=== PATIENT | male | born 1965 | race Caucasian/White ===

== ENCOUNTER 2017-05-21 22:30 | Emergency (ER) | payer MEDICARE, MEDICAID ==
[2017-05-21] MEDS ORDERED: Tetracaine HCl/PF 0.5% 4 ML Bottle ONE (22:41)
[2017-05-21] MEDS ORDERED: Tetracaine HCl/PF 0.5% 4 ML Bottle EYEBOTH ONE ×2 (22:41→23:16)
[2017-05-21] MEDS ORDERED: Diphtheria,Pertussis(Acell),Tetanus Vaccine 0.5 ML SDV IM ONE (23:42)
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
[2017-05-21 23:56] VITALS: BP 137/81
== END 2017-05-22 00:18 | disposition home or self-care (01) ==
LOC: JP.ED 22:30
DX: T20.10XA Burn of first degree of head, face, and neck, unspecified site, initial encounter (principal); T20.17XA Burn of first degree of neck, initial encounter; T22.10XA Burn of first degree of shoulder and upper limb, except wrist and hand, unspecified site, initial encounter; E78.00 Pure hypercholesterolemia, unspecified; F17.210 Nicotine dependence, cigarettes, uncomplicated; Z23 Encounter for immunization; Z88.5 Allergy status to narcotic agent; Z88.8 Allergy status to other drugs, medicaments and biological substances; Z79.82 Long term (current) use of aspirin; Z79.899 Other long term (current) drug therapy; Z95.1 Presence of aortocoronary bypass graft; Z98.890 Other specified postprocedural states; X12.XXXA Contact with other hot fluids, initial encounter
CPT/HCPCS: 90471; 90715; 99283; A9270; 99284

== ENCOUNTER 2019-04-27 13:54 | Emergency (ER) | payer MEDICARE, MEDICAID ==
[2019-04-27] MEDS ORDERED: Lactated Ringers 1,000 ML IV SCH (14:00)
--- NOTE | 2019-04-27 14:01 | EDM.PDOC ---
ED HPI GENERAL MEDICAL PROBLEM - General Stated Complaint: VIA NORTH Time Seen by Provider: 04/27/19 13:56 Source of Information: Reports: Patient, RN Notes Reviewed History Limitations: Reports: Altered Mental Status - History of Present Illness INITIAL COMMENTS - FREE TEXT/NARRATIVE: 13-year-old gentleman presents emergency department today via EMS services for altered mental status. Per report from EMS and family members he was behaving fine yesterday was found on the couch today responding inappropriately EMS services were called he was able to transferred to the [facility] does respond to questions however very limited in scope and only responds to stimuli denies pain or difficulty breathing denies any medication or drug use or alcohol use - Related Data Allergies Allergy/AdvReac Type Severity Reaction Status Date / Time cortisone [Cortisone] AdvReac Confusion Verified 05/21/17 22:43 morphine AdvReac Hallucinati Verified 05/21/17 22:43 ons Home Meds: Home Meds Aspirin [Emi Chewable] 81 mg PO DAILY 05/20/14 [History] Simvastatin 40 mg PO BEDTIME 05/20/14 [History] Lisinopril 1 tab PO DAILY 09/09/16 [History] Metoprolol Succinate [Toprol XL] 1 tab PO DAILY 09/09/16 [History] Omeprazole 1 tab PO DAILY 09/09/16 [History] Gabapentin [Neurontin] 300 mg PO BEDTIME 04/27/19 [History] oxyCODONE 5 mg PO Q6HR PRN 04/27/19 [History] Past Medical History Cardiovascular History: Reports: High Cholesterol Musculoskeletal History: Reports: Back Pain, Chronic, Fracture Neurological History: Reports: Brain Injury - Infectious Disease History Infectious Disease History: Reports: Chicken Pox, Measles, Mumps - Past Surgical History HEENT Surgical History: Reports: Tonsillectomy Cardiovascular Surgical History: Reports: Coronary Artery Bypass GI Surgical History: Reports: Other (See Below) Other GI Surgeries/Procedures: spleenectomy Social & Family History - Caffeine Use Caffeine Use: Reports: Coffee, Soda - Living Situation & Occupation Living situation: Reports: Single Occupation: Disabled ED ROS GENERAL - Review of Systems Review Of Systems: Unable To Obtain ED EXAM, NEURO - Physical Exam Exam: See Below Text/Narrative:: General: Male lethargic but arousable to voice GCS 14, alert and oriented x3 HEENT: head is atraumatic normocephalic, eyes pupils equal round reactive to light, sclera clear no conjunctivitis appreciated. Ears tympanic membranes clear and trejo landmarks and light reflex are present bilaterally canals are clear. Nose no septal deviation, nares are clear, no blood present. Mouth mucosa is moist and pink no erythema or exudate noted in soft palate, tongue is midline uvula is midline, dentition is intact. Neck: Supple no thyromegaly no tracheal deviation. Nodes: Cervical nodes subclavicular nodes nontender no palpable lymphadenopathy noted. Lungs: clear to auscultation bilaterally with symmetrical respirations, no adventitious noise appreciated. CV: Regular rate and rhythm S1 and S2 appreciated no murmurs rubs or gallops noted. Abdomen: Soft, nontender, no palpable masses or organomegaly appreciated, no distention no guarding bowel sounds are present, Neuro: Arousable to voice and does follow commands Skin: Warm and dry, intact Extremities: No lower extremity edema appreciated, pedal pulse is +2. Course - Vital Signs Last Recorded V/S: Last Vital Signs Temp 97.4 F 04/27/19 14:13 Pulse 76 04/27/19 14:57 Resp 25 H 04/27/19 14:57 BP 122/83 04/27/19 14:57 Pulse Ox 95 04/27/19 14:57 - Orders/Labs/Meds Orders: Active Orders 24 hr Category Date Time Status EKG Documentation Completion [RC] ASDIRECTED Care 04/27/19 13:58 Active Lactated Ringers [Ringers, Lactated] 1,000 ml Med 04/27/19 14:00 Active IV ASDIRECTED EKG 12 Lead [EK] Urgent Ther 04/27/19 13:57 Ordered Medication Orders Lactated Ringer's (Ringers, Lactated) 1,000 mls @ 125 mls/hr IV ASDIRECTED JOSE Last Admin: 04/27/19 14:27 Dose: 125 mls/hr Labs: Laboratory Tests 04/27/19 04/27/19 04/27/19 Range/Units 14:09 14:09 14:14 WBC (4.5-11.0) K/uL RBC (4.30-5.90) M/uL Hgb (12.0-15.0) g/dL Hct (40.0-54.0) % MCV (80-98) fL MCH (27-31) pg MCHC (32-36) % Plt Count (150-400) K/uL Neut % (Auto) (36-66) % Lymph % (Auto) (24-44) % Crosby % (Auto) (2-6) % Eos % (Auto) (2-4) % Baso % (Auto) (0-1) % Sodium (140-148) mmol/L Potassium (3.6-5.2) mmol/L Chloride (100-108) mmol/L Carbon Dioxide (21-32) mmol/L Anion Gap (5.0-14.0) mmol/L BUN (7-18) mg/dL Creatinine (0.8-1.3) mg/dL Est Cr Clr Drug Dosing mL/min Estimated GFR (MDRD) (>60) Glucose (74-106) mg/dL Lactic Acid (0.4-2.0) mmol/L Calcium (8.5-10.1) mg/dL Total Bilirubin (0.2-1.0) mg/dL AST (15-37) U/L ALT (12-78) U/L Alkaline Phosphatase (46-116) U/L Ammonia (11-32) mmol/L Creatine Kinase 127 (39-308) U/L Troponin I (0.000-0.056) ng/mL Total Protein (6.4-8.2) g/dL Albumin (3.4-5.0) g/dL Globulin (2.3-3.5) g/dL Albumin/Globulin Ratio (1.2-2.2) TSH, Ultra Sensitive (0.358-3.740) uIU/mL Urine Color [place] Urine Appearance Cloudy Urine pH 6.0 (4.5-8.0) Ur Specific [place] 1.015 (1.008-1.030) Urine Protein Trace (NEGATIVE) mg/dL Urine Glucose (UA) Normal (NEGATIVE) mg/dL Urine Ketones Negative (NEGATIVE) mg/dL Urine Occult Blood Large (NEGATIVE) Urine Nitrite Negative (NEGAITVE) Urine Bilirubin Negative (NEGATIVE) Urine Urobilinogen Normal (NORMAL) mg/dL Ur Leukocyte Esterase Negative (NEGATIVE) Urine RBC 10-20 H (0-5) Urine WBC 5-10 H (0-5) Ur Epithelial Cells Few Amorphous Sediment Few Urine Bacteria Few Urine Mucus Few Salicylates (2.0-20.0) mg/dL Urine Opiates Screen Negative (NEGATIVE) Ur Oxycodone Screen Presumptive positive H (NEGATIVE) Urine Methadone Screen Negative (NEGATIVE) Ur Propoxyphene Screen Negative (NEGATIVE) Acetaminophen (10.0-30.0) ug/mL Ur Barbiturates Screen Negative (NEGATIVE) Ur Tricyclics Screen Negative (NEGATIVE) Ur Phencyclidine Scrn Negative (NEGATIVE) Ur Amphetamine Screen Negative (NEGATIVE) U Methamphetamines Scrn Negative (NEGATIVE) Urine MDMA Screen Negative (NEGATIVE) U Benzodiazepines Scrn Negative (NEGATIVE) U Cocaine Metab Screen Negative (NEGATIVE) U Marijuana (THC) Screen Negative (NEGATIVE) Ethyl Alcohol mg/dL 04/27/19 04/27/19 04/27/19 Range/Units 14:14 14:14 14:14 WBC 9.2 (4.5-11.0) K/uL RBC 4.84 (4.30-5.90) M/uL Hgb 15.5 H (12.0-15.0) g/dL Hct 46.2 (40.0-54.0) % MCV 96 (80-98) fL MCH 32 H (27-31) pg MCHC 34 (32-36) % Plt Count 231 (150-400) K/uL Neut % (Auto) 64 (36-66) % Lymph % (Auto) 24 (24-44) % Crosby % (Auto) 12 H (2-6) % Eos % (Auto) 0 L (2-4) % Baso % (Auto) 1 (0-1) % Sodium 134 L (140-148) mmol/L Potassium 4.2 (3.6-5.2) mmol/L Chloride 98 L (100-108) mmol/L Carbon Dioxide 30 (21-32) mmol/L Anion Gap 10.2 (5.0-14.0) mmol/L BUN 18 (7-18) mg/dL Creatinine 1.1 (0.8-1.3) mg/dL Est Cr Clr Drug Dosing 82.30 mL/min Estimated GFR (MDRD) > 60 (>60) Glucose 115 H (74-106) mg/dL Lactic Acid (0.4-2.0) mmol/L Calcium 9.0 (8.5-10.1) mg/dL Total Bilirubin 0.3 (0.2-1.0) mg/dL AST 44 H (15-37) U/L ALT 48 (12-78) U/L Alkaline Phosphatase 113 (46-116) U/L Ammonia 17 (11-32) mmol/L Creatine Kinase (39-308) U/L Troponin I < 0.017 (0.000-0.056) ng/mL Total Protein 7.3 (6.4-8.2) g/dL Albumin 3.1 L (3.4-5.0) g/dL Globulin 4.2 H (2.3-3.5) g/dL Albumin/Globulin Ratio 0.7 L (1.2-2.2) TSH, Ultra Sensitive 0.934 (0.358-3.740) uIU/mL Urine Color Urine Appearance Urine pH (4.5-8.0) Ur Specific [place] (1.008-1.030) Urine Protein (NEGATIVE) mg/dL Urine Glucose (UA) (NEGATIVE) mg/dL Urine Ketones (NEGATIVE) mg/dL Urine Occult Blood (NEGATIVE) Urine Nitrite (NEGAITVE) Urine Bilirubin (NEGATIVE) Urine Urobilinogen (NORMAL) mg/dL Ur Leukocyte Esterase (NEGATIVE) Urine RBC (0-5) Urine WBC (0-5) Ur Epithelial Cells Amorphous Sediment Urine Bacteria Urine Mucus Salicylates (2.0-20.0) mg/dL Urine Opiates Screen (NEGATIVE) Ur Oxycodone Screen (NEGATIVE) Urine Methadone Screen (NEGATIVE) Ur Propoxyphene Screen (NEGATIVE) Acetaminophen < 2.0 L (10.0-30.0) ug/mL Ur Barbiturates Screen (NEGATIVE) Ur Tricyclics Screen (NEGATIVE) Ur Phencyclidine Scrn (NEGATIVE) Ur Amphetamine Screen (NEGATIVE) U Methamphetamines Scrn (NEGATIVE) Urine MDMA Screen (NEGATIVE) U Benzodiazepines Scrn (NEGATIVE) U Cocaine Metab Screen (NEGATIVE) U Marijuana (THC) Screen (NEGATIVE) Ethyl Alcohol mg/dL 04/27/19 04/27/19 04/27/19 Range/Units 14:14 14:14 14:14 WBC (4.5-11.0) K/uL RBC (4.30-5.90) M/uL Hgb (12.0-15.0) g/dL Hct (40.0-54.0) % MCV (80-98) fL MCH (27-31) pg MCHC (32-36) % Plt Count (150-400) K/uL Neut % (Auto) (36-66) % Lymph % (Auto) (24-44) % Crosby % (Auto) (2-6) % Eos % (Auto) (2-4) % Baso % (Auto) (0-1) % Sodium (140-148) mmol/L Potassium (3.6-5.2) mmol/L Chloride (100-108) mmol/L Carbon Dioxide (21-32) mmol/L Anion Gap (5.0-14.0) mmol/L BUN (7-18) mg/dL Creatinine (0.8-1.3) mg/dL Est Cr Clr Drug Dosing mL/min Estimated GFR (MDRD) (>60) Glucose (74-106) mg/dL Lactic Acid 0.9 (0.4-2.0) mmol/L Calcium (8.5-10.1) mg/dL Total Bilirubin (0.2-1.0) mg/dL AST (15-37) U/L ALT (12-78) U/L Alkaline Phosphatase (46-116) U/L Ammonia (11-32) mmol/L Creatine Kinase (39-308) U/L Troponin I (0.000-0.056) ng/mL Total Protein (6.4-8.2) g/dL Albumin (3.4-5.0) g/dL Globulin (2.3-3.5) g/dL Albumin/Globulin Ratio (1.2-2.2) TSH, Ultra Sensitive (0.358-3.740) uIU/mL Urine Color Urine Appearance Urine pH (4.5-8.0) Ur Specific [place] (1.008-1.030) Urine Protein (NEGATIVE) mg/dL Urine Glucose (UA) (NEGATIVE) mg/dL Urine Ketones (NEGATIVE) mg/dL Urine Occult Blood (NEGATIVE) Urine Nitrite (NEGAITVE) Urine Bilirubin (NEGATIVE) Urine Urobilinogen (NORMAL) mg/dL Ur Leukocyte Esterase (NEGATIVE) Urine RBC (0-5) Urine WBC (0-5) Ur Epithelial Cells Amorphous Sediment Urine Bacteria Urine Mucus Salicylates 0.6 L (2.0-20.0) mg/dL Urine Opiates Screen (NEGATIVE) Ur Oxycodone Screen (NEGATIVE) Urine Methadone Screen (NEGATIVE) Ur Propoxyphene Screen (NEGATIVE) Acetaminophen (10.0-30.0) ug/mL Ur Barbiturates Screen (NEGATIVE) Ur Tricyclics Screen (NEGATIVE) Ur Phencyclidine Scrn (NEGATIVE) Ur Amphetamine Screen (NEGATIVE) U Methamphetamines Scrn (NEGATIVE) Urine MDMA Screen (NEGATIVE) U Benzodiazepines Scrn (NEGATIVE) U Cocaine Metab Screen (NEGATIVE) U Marijuana (THC) Screen (NEGATIVE) Ethyl Alcohol < 3 mg/dL Meds: Medications Generic Name Dose Route Start Last Admin Trade Name Freq PRN Reason Stop Dose Admin Lactated Ringer's 1,000 mls @ 125 mls/hr 04/27/19 14:00 04/27/19 14:27 Ringers, Lactated IV 125 mls/hr ASDIRECTED JOSE Administration Departure - Departure Time of Disposition: 15:23 Disposition: Home, Self-Care 01 Condition: Fair Clinical Impression: Altered mental status Qualifiers: Altered mental status type: somnolence Qualified Code(s): R40.0 - Somnolence - Discharge Information Referrals: PCP,None [Primary Care Provider] - Additional Instructions: Resume regular medications, keep your follow-up appointment with your primary care provider this week, call or return to the emergency department worsening of symptoms - My Orders Last 24 Hours: My Active Orders 04/27/19 13:57 EKG 12 Lead [EK] Urgent 04/27/19 13:58 EKG Documentation Completion [RC] ASDIRECTED 04/27/19 14:00 Lactated Ringers [Ringers, Lactated] 1,000 ml IV ASDIRECTED - Assessment/Plan Last 24 Hours: My Active Orders 04/27/19 13:57 EKG 12 Lead [EK] Urgent 04/27/19 13:58 EKG Documentation Completion [RC] ASDIRECTED 04/27/19 14:00 Lactated Ringers [Ringers, Lactated] 1,000 ml IV ASDIRECTED Plan: Assessment Acuity = acute Site and laterality = altered mental status GCS 14 Etiology = unclear etiology Manifestations = none Location of injury = Home Lab values = CBC, CMP, ammonia, troponin, urinalysis, chest x-ray, CT scan of the head showed no acute process salicylic acid, acetaminophen and alcohol also negative urine drug screen positive for opiates only Plan After liter fluids he is responding appropriately he is not sure of what happened denies any alcohol no recreational drugs , discharge home follow-up primary care this week appointment on This note was dictated using [employer] voice recognition software please call with any questions on syntax or grammar.
[2019-04-27 14:13] VITALS: BP 122/83
[2019-04-27 14:49] LABS: ACETAMINOPHEN < 2.0 ug/mL (10.0-30.0)
[2019-04-27 14:58] VITALS: PULSE 76
--- NOTE | 2019-04-27 15:01 | CRLCR ---
INDICATION: hypoxia INDICATION: Hip axial. TECHNIQUE: Chest 1 view. COMPARISON: None FINDINGS: Cardiovascular and mediastinum: Heart size and vasculature are normal in caliber and appearance. Mediastinum is within normal limits. Lungs and pleural space: Lungs are clear. No sign of infiltrate or mass. No sign of pleural effusion. No pneumothorax. Bones and soft tissues: Median sternotomy changes. IMPRESSION: There is no acute airspace disease. Dictated by Chauncey Zeng MD @ 04/27/2019 3:00:03 PM Dictated by: Chauncey Zeng MD @ 04/27/2019 15:00:13 (Electronically Signed)
--- NOTE | 2019-04-27 15:05 | CRLCT ---
INDICATION: 54-year-old male. Altered mental status. TECHNIQUE: CT images foramen magnum to vertex were obtained without contrast. FINDINGS: The ventricles and normal in size and shape. No evidence of acute hemorrhage no subdural fluid collections no mass effect. Preservation of trejo-white interface without evidence of acute focal infarction. Tiny chronic lacunar infarction left basal ganglia. No posterior fossa hemorrhage or mass effect. Bony calvarium is unremarkable. IMPRESSION: No evidence of acute hemorrhage mass effect or cortical based infarction. Please note that all CT scans at this facility use dose modulation, iterative reconstruction, and/or weight-based dosing when appropriate to reduce radiation dose to as low as reasonably achievable. Dictated by Madan Jones MD @ Apr 27 2019 3:03PM Signed by Dr. Madan Jones @ Apr 27 2019 3:04PM
== END 2019-04-27 15:52 | disposition home or self-care (01) ==
LOC: JP.ED 13:54
DX: R40.0 Somnolence (principal); E78.00 Pure hypercholesterolemia, unspecified; Z88.8 Allergy status to other drugs, medicaments and biological substances; Z79.82 Long term (current) use of aspirin; Z79.899 Other long term (current) drug therapy
CPT/HCPCS: 36415; 70450; 71045; 80053; 80305; 81001; 82140; 82550; 83605; 84443; 84484; 85025; 93005; 93010; 96360; 99285; G0480; J7120; 99284

== ENCOUNTER 2019-05-04 12:08 | Emergency (ER) | payer MEDICARE, MEDICAID ==
[~2019-05-04 12:08] MED LIST: methylPREDNISolone Sodium Succinate 125 MG/2 ML SDV IVPUSH ONE
[2019-05-04] MEDS ORDERED: Famotidine 20 MG Tab PO ONE (12:09)
--- NOTE | 2019-05-04 12:21 | EDM.PDOC ---
ED HPI GENERAL MEDICAL PROBLEM - General Chief Complaint: Allergic Reaction Stated Complaint: MEDICAL VIA NORTH Time Seen by Provider: 05/04/19 12:10 Source of Information: Reports: Patient, EMS, Old Records History Limitations: Reports: No Limitations - History of Present Illness INITIAL COMMENTS - FREE TEXT/NARRATIVE: 54 yo male was seen in the clinic yesterday for a rash that started on Friday. He was prescribed doxycycline and today his rash was worse and he was having trouble breathing so EMS was contacted and transported here after Epi and IV diphenhydramine 50 mg. Is improving upon arrival. Stridor noted in addition to a rash with some tachycardia by EMS. He has had Percocet in the past, this was recently restarted as well. No hx of allergy to this med. Has a f/u appt with his doctor in 2 days. Onset: Gradual Onset Date: 05/02/19 Duration: Day(s): (2), Getting Worse Location: Reports: Generalized Quality: Reports: Other (itchy) Severity: Severe Improves with: Reports: Medication Worsens with: Reports: Other (? doxycycline) Context: Reports: Other (See HPI) Associated Symptoms: Reports: Rash, Shortness of Breath. 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) (see HPI) - Related Data Allergies Allergy/AdvReac Type Severity Reaction Status Date / Time cortisone [Cortisone] AdvReac Confusion Verified 05/21/17 22:43 morphine AdvReac Hallucinati Verified 05/21/17 22:43 ons Home Meds: Home Meds Aspirin [Emi Chewable] 325 mg PO DAILY 05/20/14 [History] Simvastatin 40 mg PO BEDTIME 05/20/14 [History] Metoprolol Succinate [Toprol XL] 25 mg PO DAILY 09/09/16 [History] Omeprazole 40 mg PO DAILY 09/09/16 [History] Gabapentin [Neurontin] 300 mg PO BEDTIME 04/27/19 [History] oxyCODONE 5 mg PO Q6HR PRN 04/27/19 [History] Doxycycline [Doxycycline Hyclate] 100 mg PO BID 05/04/19 [History] Naproxen 500 mg PO BID 05/04/19 [History] Past Medical History Cardiovascular History: Reports: High Cholesterol Musculoskeletal History: Reports: Back Pain, Chronic, Fracture Neurological History: Reports: Brain Injury - Infectious Disease History Infectious Disease History: Reports: Chicken Pox, Measles, Mumps - Past Surgical History HEENT Surgical History: Reports: Tonsillectomy Cardiovascular Surgical History: Reports: Coronary Artery Bypass GI Surgical History: Reports: Other (See Below) Other GI Surgeries/Procedures: spleenectomy Social & Family History - Caffeine Use Caffeine Use: Reports: Coffee, Soda - Living Situation & Occupation Living situation: Reports: Single Occupation: Disabled ED ROS GENERAL - Review of Systems Review Of Systems: See Below Constitutional: Reports: Malaise HEENT: Reports: Throat Swelling Respiratory: Reports: Shortness of Breath Cardiovascular: Reports: No Symptoms Endocrine: Reports: No Symptoms GI/Abdominal: Reports: No Symptoms : Reports: No Symptoms Musculoskeletal: Reports: No Symptoms Skin: Reports: Pruritis, Rash, Erythema Neurological: Reports: No Symptoms Psychiatric: Reports: No Symptoms ED EXAM, SKIN/RASH Exam: See Below Exam Limited By: No Limitations General Appearance: Alert, WD/WN, Mild Distress, Obese Eye Exam: Bilateral Eye: Normal Inspection Ears: Hearing Grossly Normal Nose: Normal Inspection, No Blood Throat/Mouth: Normal Inspection, Other (some stridor, improved per EMS). No: No Airway Compromise Head: Atraumatic, Normocephalic Neck: Normal Inspection Respiratory/Chest: No Respiratory Distress, No Accessory Muscle Use, Decreased Breath Sounds. No: Wheezing Cardiovascular: Regular Rate, Rhythm, Tachycardia GI/Abdominal: Normal Bowel Sounds, Soft, Non-Tender, No Distention Back Exam: Normal Inspection Extremities: Normal Inspection, Normal Range of Motion, Non-Tender, No Pedal Edema Neurological: Alert, Oriented, CN II-XII Intact, Normal Cognition, No Motor/ Sensory Deficits Psychiatric: Normal Affect, Normal Mood Skin: Warm, Dry, Intact, Erythema, Rash Location, Skin: Generalized Characteristics: Urticarial Associated features: Induration. No: Warmth, Tenderness, Lymphangitis Course - Vital Signs Last Recorded V/S: Last Vital Signs Temp 37.8 C 05/04/19 12:11 Pulse 115 H 05/04/19 13:10 Resp 37 H 05/04/19 13:10 BP 117/76 05/04/19 13:10 Pulse Ox 96 05/04/19 13:10 - Orders/Labs/Meds Orders: Active Orders 24 hr Category Date Time Status Sodium Chloride 0.9% [Normal Saline] 1,000 ml Med 05/04/19 12:45 Active IV ASDIRECTED Medication Orders Sodium Chloride (Normal Saline) 1,000 mls @ 500 mls/hr IV ASDIRECTED JOSE Last Admin: 05/04/19 12:42 Dose: 500 mls/hr Meds: Medications Generic Name Dose Route Start Last Admin Trade Name Freq PRN Reason Stop Dose Admin Sodium Chloride 1,000 mls @ 500 mls/hr 05/04/19 12:45 05/04/19 12:42 Normal Saline IV 500 mls/hr ASDIRECTED JOSE Administration Discontinued Medications Generic Name Dose Route Start Last Admin Trade Name Freq PRN Reason Stop Dose Admin Diphenhydramine HCl 50 mg 05/04/19 12:30 05/04/19 12:42 Benadryl IVPUSH 05/04/19 12:31 50 mg ONETIME ONE Administration Famotidine 40 mg 05/04/19 12:09 05/04/19 12:28 Pepcid PO 05/04/19 12:10 40 mg ONETIME ONE Administration Methylprednisolone Sodium Succinate 125 mg 05/04/19 12:08 05/04/19 12:29 Solu-Medrol IVPUSH 05/04/19 12:09 125 mg ONETIME ONE Administration Departure - Departure Time of Disposition: 14:10 Disposition: Home, Self-Care 01 Condition: Fair Clinical Impression: Allergic reaction caused by a drug Qualifiers: Encounter type: initial encounter Qualified Code(s): T78.40XA - Allergy, unspecified, initial encounter - Discharge Information *PRESCRIPTION DRUG MONITORING PROGRAM REVIEWED*: No *COPY OF PRESCRIPTION DRUG MONITORING REPORT IN PATIENT ELIEL: No Instructions: Anaphylactic Reaction, Adult Referrals: PCP,None [Primary Care Provider] - Forms: ED Department Discharge Additional Instructions: Take diphenhydramine 75 mg every 6 hrs for 24 hrs. Do not take doxycycline or oxycodone again until you discuss with your doctor at your appt. Return as needed. - My Orders Last 24 Hours: My Active Orders 05/04/19 12:45 Sodium Chloride 0.9% [Normal Saline] 1,000 ml IV ASDIRECTED - Assessment/Plan Last 24 Hours: My Active Orders 05/04/19 12:45 Sodium Chloride 0.9% [Normal Saline] 1,000 ml IV ASDIRECTED
[2019-05-04] MEDS ORDERED: diphenhydrAMINE 50 MG/ML SDV IVPUSH ONE (12:30)
[2019-05-04] MEDS ORDERED: Sodium Chloride 0.9% 1,000 ML IV SCH (12:45)
[2019-05-04 14:07] VITALS: BP 137/81; PULSE 110
== END 2019-05-04 14:15 | disposition home or self-care (01) ==
LOC: JP.ED 12:08
DX: L50.0 Allergic urticaria (principal); E78.00 Pure hypercholesterolemia, unspecified; Z88.6 Allergy status to analgesic agent; Z88.8 Allergy status to other drugs, medicaments and biological substances; Z79.82 Long term (current) use of aspirin; Z79.899 Other long term (current) drug therapy
CPT/HCPCS: 96361; 96374; 96375; 99282; A9270; J1200; J2930; J7030; 99283

== ENCOUNTER 2020-06-23 11:19 | Emergency (ER) | payer MEDICAID, MEDICARE ==
[2020-06-23 11:34] VITALS: BP 136/89; PULSE 86
--- NOTE | 2020-06-23 12:08 | EDM.PDOC ---
ED HPI GENERAL MEDICAL PROBLEM - General Chief Complaint: General Stated Complaint: BREATHING ISSUES Time Seen by Provider: 06/23/20 11:45 Source of Information: Reports: Patient, EMS, Family History Limitations: Reports: No Limitations - History of Present Illness INITIAL COMMENTS - FREE TEXT/NARRATIVE: 55-year-old male with significant traumatic brain injury at age 16, cared for by his mother overnight last night he had increased shortness of breath, palpitations, and his mother called the ambulance morning. He was stable in route. Onset: Unknown/Unsure Duration: Week(s): (Symptoms have been worsening for the last 1 to 2 weeks) Associated Symptoms: Reports: Confusion (Intermittent confusion which is chronic), Shortness of Breath. Denies: Loss of Appetite, Nausea/Vomiting - Related Data Allergies Allergy/AdvReac Type Severity Reaction Status Date / Time doxycycline Allergy Airway Verified 05/05/19 09:32 Tightness cortisone [Cortisone] AdvReac Confusion Verified 05/21/17 22:43 morphine AdvReac Hallucinati Verified 05/21/17 22:43 ons oxycodone AdvReac Hives Verified 06/23/20 11:41 Home Meds: Home Meds Aspirin [Emi Chewable] 325 mg PO DAILY 05/20/14 [History] Metoprolol Succinate [Toprol XL] 25 mg PO DAILY 09/09/16 [History] Omeprazole 40 mg PO DAILY 09/09/16 [History] Gabapentin [Neurontin] 800 mg PO TID 04/27/19 [History] Naproxen 500 mg PO BID 05/04/19 [History] Acetaminophen 1,000 mg PO TID 06/23/20 [History] DULoxetine [Cymbalta] 60 mg PO DAILY 06/23/20 [History] atorvaSTATin [Lipitor] 40 mg PO DAILY 06/23/20 [History] lisinopriL [Lisinopril] 5 mg PO DAILY 06/23/20 [History] Past Medical History HEENT History: Reports: Hard of Hearing, Impaired Vision Cardiovascular History: Reports: High Cholesterol, Hypertension Respiratory History: Reports: Sleep Apnea Other Respiratory History: cpap does not use Musculoskeletal History: Reports: Back Pain, Chronic, Fracture, Other (See Below) Neurological History: Reports: Brain Injury - Infectious Disease History Infectious Disease History: Reports: Chicken Pox, Measles, Mumps - Past Surgical History Head Surgeries/Procedures: Reports: None HEENT Surgical History: Reports: Tonsillectomy Cardiovascular Surgical History: Reports: Coronary Artery Bypass Respiratory Surgical History: Reports: None GI Surgical History: Reports: Other (See Below) Other GI Surgeries/Procedures: spleenectomy Neurological Surgical History: Reports: Spinal Fusion Musculoskeletal Surgical History: Reports: None Social & Family History - Tobacco Use Smoking Status *Q: Current Every Day Smoker Years of Tobacco use: 40 Packs/Tins Daily: 1 Used Tobacco, but Quit: No Second Hand Smoke Exposure: No - Caffeine Use Caffeine Use: Reports: Coffee - Recreational Drug Use Recreational Drug Use: No - Living Situation & Occupation Living situation: Reports: Single Occupation: Disabled ED ROS GENERAL - Review of Systems Review Of Systems: See Below Constitutional: Reports: Malaise. Denies: Fever, Chills HEENT: Denies: Vision Change Respiratory: Reports: Shortness of Breath. Denies: Wheezing, Cough, Sputum Cardiovascular: Denies: Chest Pain GI/Abdominal: Denies: Abdominal Pain, Nausea, Vomiting : Reports: No Symptoms Musculoskeletal: Reports: Other (Chronic leg radiculopathy on the right side causing pain) Skin: Reports: Diaphoresis (Intermittent periods of diaphoresis) Neurological: Denies: Headache ED EXAM, GENERAL - Physical Exam Exam: See Below Exam Limited By: No Limitations General Appearance: Alert, No Apparent Distress Eye Exam: Bilateral Eye: EOMI Head: Atraumatic Neck: Supple, Non-Tender Respiratory/Chest: Chest Non-Tender, Crackles (A few basilar crackles are heard bilaterally, otherwise diffuse decreased breath sounds) Cardiovascular: Regular Rate, Rhythm, No Murmur GI/Abdominal: Soft, Non-Tender Extremities: Other (Some pain with passive movement of the left leg, no significant peripheral edema) Neurological: Alert, Oriented Course - Vital Signs Last Recorded V/S: Last Vital Signs Temp 98.3 F 06/23/20 11:38 Pulse 86 06/23/20 11:38 Resp 20 06/23/20 11:38 BP 136/89 06/23/20 11:38 Pulse Ox 92 L 06/23/20 11:38 - Orders/Labs/Meds Labs: Laboratory Tests 06/23/20 06/23/20 Range/Units 11:37 11:37 WBC 12.6 H (4.5-11.0) K/uL RBC 4.38 (4.30-5.90) M/uL Hgb 14.7 (12.0-15.0) g/dL Hct 42.9 (40.0-54.0) % MCV 98 (80-98) fL MCH 34 H (27-31) pg MCHC 34 (32-36) % Plt Count 283 (150-400) K/uL Neut % (Auto) 65 (36-66) % Lymph % (Auto) 24 (24-44) % Mchenry % (Auto) 8 H (2-6) % Eos % (Auto) 2 (2-4) % Baso % (Auto) 1 (0-1) % Sodium 143 (140-148) mmol/L Potassium 4.6 (3.6-5.2) mmol/L Chloride 107 (100-108) mmol/L Carbon Dioxide 29 (21-32) mmol/L Anion Gap 6.7 (5.0-14.0) mmol/L BUN 14 (7-18) mg/dL Creatinine 1.0 (0.8-1.3) mg/dL Est Cr Clr Drug Dosing 89.46 mL/min Estimated GFR (MDRD) > 60 (>60) Glucose 115 H (74-106) mg/dL Calcium 8.8 (8.5-10.1) mg/dL Total Bilirubin 0.8 D (0.2-1.0) mg/dL AST 14 L (15-37) U/L ALT 13 (12-78) U/L Alkaline Phosphatase 79 (46-116) U/L Troponin I < 0.017 (0.000-0.056) ng/mL Total Protein 6.8 (6.4-8.2) g/dL Albumin 3.6 (3.4-5.0) g/dL Globulin 3.2 (2.3-3.5) g/dL Albumin/Globulin Ratio 1.1 L (1.2-2.2) - Re-Assessments/Exams Free Text/Narrative Re-Assessment/Exam: 06/23/20 15:30 2 view chest x-ray shows mild congestive heart failure with small bilateral pleural effusions and increased vascularization. CBC is normal, kidney function is good, electrolytes are within normal limits and troponin is 0. Patient was started on 20 mg of Lasix daily and given 30-day supply, and recommended to follow-up with his primary provider in the next 7 to 10 days. Return sooner if worsening despite treatment Departure - Departure Time of Disposition: 12:38 Disposition: Home, Self-Care 01 Clinical Impression: Nocturnal dyspnea, Palpitations - Discharge Information Instructions: Shortness of Breath, Adult, [id number] Referrals: PCP,None [Primary Care Provider] - Forms: ED Department Discharge Care Plan Goals: Continue your current medications, adding the 1 dose furosemide each morning as directed. Recheck with your regular doctor in 1 to 2 weeks, or return sooner if not improving satisfactorily Sepsis Event Note (ED) - Evaluation Sepsis Screening Result: No Definite Risk - Focused Exam Vital Signs: Vital Signs Temp Pulse Resp BP Pulse Ox 06/23/20 11:38 98.3 F 86 20 136/89 92 L 06/23/20 11:33 98.3 F 86 20 136/89 92 L
--- NOTE | 2020-06-23 13:24 | CR ---
CHEST: 2 view CLINICAL HISTORY:Dyspnea COMPARISON:2019 FINDINGS: Heart is enlarged. Pulmonary vascularity is cephalized. There is some generalized interstitial prominence. There are minimal effusions bilaterally. Patient has had previous sternotomy. There is an old healed left clavicular fracture. Impression: CHF. Small bilateral pleural effusions Previous sternotomy
== END 2020-06-23 12:38 | disposition home or self-care (01) ==
LOC: JP.ED 11:19
DX: I11.0 Hypertensive heart disease with heart failure (principal); I50.9 Heart failure, unspecified; J90 Pleural effusion, not elsewhere classified; E78.00 Pure hypercholesterolemia, unspecified; F17.210 Nicotine dependence, cigarettes, uncomplicated; Z88.1 Allergy status to other antibiotic agents; Z88.5 Allergy status to narcotic agent; Z88.8 Allergy status to other drugs, medicaments and biological substances; Z79.899 Other long term (current) drug therapy; Z79.82 Long term (current) use of aspirin
CPT/HCPCS: 36415; 71046; 71046-26; 80053; 84484; 85025; 99285-25

== ENCOUNTER 2020-07-10 02:47 | Inpatient (IN) | payer MEDICAID, MEDICARE ==
[2020-07-10] MEDS ORDERED: Albuterol/Ipratropium 3.0-0.5 MG/3 ML Neb Soln NEB ONE (03:19)
--- NOTE | 2020-07-10 03:21 | EDM.PDOC ---
ED HPI GENERAL MEDICAL PROBLEM - General Chief Complaint: Respiratory Problem Stated Complaint: MEDICAL VIA NORTH Time Seen by Provider: 07/10/20 03:17 Source of Information: Reports: Patient, Family, RN Notes Reviewed History Limitations: Reports: No Limitations - History of Present Illness INITIAL COMMENTS - FREE TEXT/NARRATIVE: 55-year-old gentleman presents emergency department today via EMS services complaint shortness of breath. He states about 1 hour ago became extremely short of breath he does admit to some chest pain but it is very mild one specific point on his chest he is more concerned about his breathing. He was found to be hypoxic 84% he normally does not use oxygen does have an extensive tobacco use history COPD diagnosis is on his chart but he is unaware of this. 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 Pain Score (Numeric/FACES): 8 - Related Data Allergies Allergy/AdvReac Type Severity Reaction Status Date / Time doxycycline Allergy Airway Verified 07/10/20 02:55 Tightness cortisone [Cortisone] AdvReac Confusion Verified 07/10/20 02:55 morphine AdvReac Hallucinati Verified 07/10/20 02:55 ons oxycodone AdvReac Hives Verified 07/10/20 02:55 Home Meds: Home Meds Aspirin [Emi Chewable] 325 mg PO DAILY 05/20/14 [History] Metoprolol Succinate [Toprol XL] 25 mg PO DAILY 09/09/16 [History] Omeprazole 40 mg PO DAILY 09/09/16 [History] Gabapentin [Neurontin] 800 mg PO TID 04/27/19 [History] Naproxen 500 mg PO BID 05/04/19 [History] Acetaminophen 1,000 mg PO TID 06/23/20 [History] DULoxetine [Cymbalta] 60 mg PO DAILY 06/23/20 [History] atorvaSTATin [Lipitor] 40 mg PO DAILY 06/23/20 [History] lisinopriL [Lisinopril] 5 mg PO DAILY 06/23/20 [History] Past Medical History HEENT History: Reports: Hard of Hearing, Impaired Vision Cardiovascular History: Reports: CAD, High Cholesterol, Hypertension Respiratory History: Reports: COPD, Sleep Apnea Other Respiratory History: cpap does not use Musculoskeletal History: Reports: Back Pain, Chronic, Fracture Neurological History: Reports: Brain Injury Hematologic History: Reports: Anticoagulation Therapy - Infectious Disease History Infectious Disease History: Reports: Chicken Pox, Measles, Shingles - Past Surgical History Head Surgeries/Procedures: Reports: None HEENT Surgical History: Reports: Tonsillectomy Cardiovascular Surgical History: Reports: Coronary Artery Bypass Respiratory Surgical History: Reports: None GI Surgical History: Reports: Other (See Below) Other GI Surgeries/Procedures: spleenectomy Neurological Surgical History: Reports: Spinal Fusion Social & Family History - Tobacco Use Smoking Status *Q: Heavy Tobacco Smoker Years of Tobacco use: 41 Packs/Tins Daily: 1 - Caffeine Use Caffeine Use: Reports: Coffee - Recreational Drug Use Recreational Drug Use: No - Living Situation & Occupation Living situation: Reports: Single Occupation: Disabled ED ROS GENERAL - Review of Systems Review Of Systems: See Below Constitutional: Reports: No Symptoms HEENT: Reports: No Symptoms Respiratory: Reports: Shortness of Breath, Cough. Denies: Sputum Cardiovascular: Reports: Dyspnea on Exertion GI/Abdominal: Reports: No Symptoms ED EXAM, GENERAL - Physical Exam Exam: See Below Exam Limited By: No Limitations General Appearance: Alert, WD/WN, No Apparent Distress Head: Atraumatic, Normocephalic Neck: Normal Inspection, Supple, Non-Tender, Full Range of Motion Respiratory/Chest: No Respiratory Distress, Chest Non-Tender, Decreased Breath Sounds, Rhonchi Cardiovascular: Regular Rate, Rhythm, No Murmur Course - Vital Signs Last Recorded V/S: Last Vital Signs Temp 97.9 F 07/10/20 03:00 Pulse 90 07/10/20 03:00 Resp 21 H 07/10/20 03:00 BP 131/84 07/10/20 03:00 Pulse Ox 84 L 07/10/20 03:00 - Orders/Labs/Meds Orders: Active Orders 24 hr Category Date Time Status EKG Documentation Completion [RC] ASDIRECTED Care 07/10/20 03:18 Active RT Aerosol Therapy [RC] ASDIRECTED Care 07/10/20 03:19 Active Chest 2V [CR] Urgent Exams 07/10/20 03:17 Taken CORONAVIRUS COVID-19, DAVID Stat Lab 07/10/20 04:24 Ordered EKG 12 Lead [EK] Urgent Ther 07/10/20 03:17 Ordered Labs: Laboratory Tests 07/10/20 07/10/20 07/10/20 Range/Units 03:25 03:25 03:25 WBC 13.0 H (4.5-11.0) K/uL RBC 4.19 L (4.30-5.90) M/uL Hgb 13.7 (12.0-15.0) g/dL Hct 42.6 (40.0-54.0) % MCV 102 H (80-98) fL MCH 33 H (27-31) pg MCHC 32 (32-36) % Plt Count 304 (150-400) K/uL Neut % (Auto) 55 (36-66) % Lymph % (Auto) 31 (24-44) % Doddridge % (Auto) 10 H (2-6) % Eos % (Auto) 2 (2-4) % Baso % (Auto) 1 (0-1) % D-Dimer, Quantitative 174 (0.0-400.0) ng/mL Sodium 143 (140-148) mmol/L Potassium 4.5 (3.6-5.2) mmol/L Chloride 107 (100-108) mmol/L Carbon Dioxide 26 (21-32) mmol/L Anion Gap 9.7 (5.0-14.0) mmol/L BUN 28 H D (7-18) mg/dL Creatinine 1.1 (0.8-1.3) mg/dL Est Cr Clr Drug Dosing 81.32 mL/min Estimated GFR (MDRD) > 60 (>60) Glucose 112 H (74-106) mg/dL Calcium 8.8 (8.5-10.1) mg/dL Total Bilirubin 0.6 (0.2-1.0) mg/dL AST 15 (15-37) U/L ALT 11 L (12-78) U/L Alkaline Phosphatase 71 (46-116) U/L Troponin I < 0.017 (0.000-0.056) ng/mL NT-Pro-B Natriuret Pep (5-125) pg/mL Total Protein 6.7 (6.4-8.2) g/dL Albumin 3.5 (3.4-5.0) g/dL Globulin 3.2 (2.3-3.5) g/dL Albumin/Globulin Ratio 1.1 L (1.2-2.2) 07/10/20 Range/Units 03:25 WBC (4.5-11.0) K/uL RBC (4.30-5.90) M/uL Hgb (12.0-15.0) g/dL Hct (40.0-54.0) % MCV (80-98) fL MCH (27-31) pg MCHC (32-36) % Plt Count (150-400) K/uL Neut % (Auto) (36-66) % Lymph % (Auto) (24-44) % Doddridge % (Auto) (2-6) % Eos % (Auto) (2-4) % Baso % (Auto) (0-1) % D-Dimer, Quantitative (0.0-400.0) ng/mL Sodium (140-148) mmol/L Potassium (3.6-5.2) mmol/L Chloride (100-108) mmol/L Carbon Dioxide (21-32) mmol/L Anion Gap (5.0-14.0) mmol/L BUN (7-18) mg/dL Creatinine (0.8-1.3) mg/dL Est Cr Clr Drug Dosing mL/min Estimated GFR (MDRD) (>60) Glucose (74-106) mg/dL Calcium (8.5-10.1) mg/dL Total Bilirubin (0.2-1.0) mg/dL AST (15-37) U/L ALT (12-78) U/L Alkaline Phosphatase (46-116) U/L Troponin I (0.000-0.056) ng/mL NT-Pro-B Natriuret Pep 432 H (5-125) pg/mL Total Protein (6.4-8.2) g/dL Albumin (3.4-5.0) g/dL Globulin (2.3-3.5) g/dL Albumin/Globulin Ratio (1.2-2.2) Meds: Medications Discontinued Medications Generic Name Dose Route Start Last Admin Trade Name Freq PRN Reason Stop Dose Admin Albuterol/Ipratropium 3 ml 07/10/20 03:19 07/10/20 03:25 Duoneb 3.0-0.5 Mg/3 Ml NEB 07/10/20 03:20 3 ml ONETIME ONE Administration Methylprednisolone Sodium Succinate 40 mg 07/10/20 04:25 Solu-Medrol IVPUSH 07/10/20 04:26 ONETIME ONE Departure - Departure Time of Disposition: 04:28 Disposition: Admitted As Inpatient 64 Condition: Fair Clinical Impression: COPD exacerbation, Hypoxia - Discharge Information Referrals: PCP,None [Primary Care Provider] - Forms: ED Department Discharge Sepsis Event Note (ED) - Evaluation Sepsis Screening Result: No Definite Risk - Focused Exam Vital Signs: Vital Signs Temp Pulse Resp BP Pulse Ox 07/10/20 03:00 97.9 F 90 21 H 131/84 84 L - My Orders Last 24 Hours: My Active Orders 07/10/20 03:17 Chest 2V [CR] Urgent EKG 12 Lead [EK] Urgent 07/10/20 03:18 EKG Documentation Completion [RC] ASDIRECTED 07/10/20 03:19 RT Aerosol Therapy [RC] ASDIRECTED 07/10/20 04:24 CORONAVIRUS COVID-19, DAVID Stat - Assessment/Plan Last 24 Hours: My Active Orders 07/10/20 03:17 Chest 2V [CR] Urgent EKG 12 Lead [EK] Urgent 07/10/20 03:18 EKG Documentation Completion [RC] ASDIRECTED 07/10/20 03:19 RT Aerosol Therapy [RC] ASDIRECTED 07/10/20 04:24 CORONAVIRUS COVID-19, DAVID Stat Plan: Assessment Acuity = acute Site and laterality = COPD exacerbation complicated patient with known history of coronary artery disease Etiology = unknown Manifestations = dyspnea with hypoxia Location of injury = Home Lab values = WBC elevated 13.0 consistent leukocytosis d-dimer normal 134 tro ponins negative BNP slightly elevated 432 chest x-ray does show cardiomegaly but no obvious signs of pneumonia EKG demonstrates left ventricular hypertrophy otherwise no ST elevations or depressions Plan Call discussed case Dr. Valentino physician commercial correspondent at [phone] she kindly agreed to come evaluate the patient in the hospital for admission he has been given 40 mg Solu- Medrol in the emergency department as well as 1 DuoNeb This note was dictated using [email or web address] voice recognition software please call with any questions on syntax or grammar.
[2020-07-10] MEDS ORDERED: methylPREDNISolone Sodium Succinate 40 MG/1 ML SDV IVPUSH ONE (04:25)
[2020-07-10] MEDS ORDERED: Ondansetron 4 MG Tab.DIS PO PRN (04:29)
[2020-07-10] MEDS ORDERED: Sodium Chloride 0.9% 10 ML Syringe FLUSH PRN (04:29)
[2020-07-10] MEDS ORDERED: Acetaminophen 325 MG Tab PO PRN (04:29)
[2020-07-10] MEDS ORDERED: Albuterol/Ipratropium 3.0-0.5 MG/3 ML Neb Soln NEB PRN ×2 (04:29→07:49)
[2020-07-10] MEDS ORDERED: cefTRIAXone 1 GM in Sodium Chloride 0.9% 50 ML IV ONE (04:35)
--- NOTE | 2020-07-10 08:04 | PCM.HP.2 ---
H&P History of Present Illness - General Date of Service: 07/10/20 Admit Problem/Dx: Admission Diagnosis/Problem Admission Diagnosis/Problem COPD with acute lower respiratory infection Source of Information: Patient History Limitations: Reports: Other (TBI, patient is a poor historian) - History of Present Illness Initial Comments - Free Text/Narative: Patient is a 55yo male with a PMH of TBI, COPD, and tobacco use disorder who presented early this morning to the ED via EMS for shortness of breath. He says he didn't know that he has COPD. He also says he's supposed to be seen soon for a heart murmur though he doesn't understand much about this situation either. He says he became SOB this morning and called for an ambulance. He was 84% in the ED and does not use O2 at home. He does have increased cough and sputum production, but denies fevers. He has not been exposed to covid as far as he is aware. Onset of Symptoms: Reports: Today, Sudden Improves with: Reports: Medication Worsens with: Reports: Movement Associated Symptoms: Reports: Chest Pain, Shortness of Breath left leg Pain Score (Numeric/FACES): 8 - Related Data Allergies/Adverse Reactions: Allergies Allergy/AdvReac Type Severity Reaction Status Date / Time doxycycline Allergy Airway Verified 07/10/20 02:55 Tightness cortisone [Cortisone] AdvReac Confusion Verified 07/10/20 02:55 morphine AdvReac Hallucinati Verified 07/10/20 02:55 ons oxycodone AdvReac Hives Verified 07/10/20 02:55 Home Medications: Home Meds Aspirin [Emi Chewable] 325 mg PO DAILY 05/20/14 [History] Metoprolol Succinate [Toprol XL] 25 mg PO DAILY 09/09/16 [History] Omeprazole 40 mg PO DAILY 09/09/16 [History] Gabapentin [Neurontin] 800 mg PO TID 04/27/19 [History] Naproxen 500 mg PO BID 05/04/19 [History] Acetaminophen 1,000 mg PO TID 06/23/20 [History] DULoxetine [Cymbalta] 60 mg PO DAILY 06/23/20 [History] atorvaSTATin [Lipitor] 40 mg PO DAILY 06/23/20 [History] lisinopriL [Lisinopril] 5 mg PO DAILY 06/23/20 [History] Past Medical History HEENT History: Reports: Hard of Hearing, Impaired Vision Cardiovascular History: Reports: CAD, Heart Murmur, High Cholesterol, Hypertension Respiratory History: Reports: COPD, Sleep Apnea Other Respiratory History: cpap does not use Musculoskeletal History: Reports: Back Pain, Chronic, Fracture Neurological History: Reports: Brain Injury Hematologic History: Reports: Anticoagulation Therapy - Infectious Disease History Infectious Disease History: Reports: Chicken Pox, Measles, Shingles - Past Surgical History Head Surgeries/Procedures: Reports: None HEENT Surgical History: Reports: Tonsillectomy Cardiovascular Surgical History: Reports: Coronary Artery Bypass Respiratory Surgical History: Reports: None GI Surgical History: Reports: Other (See Below) Other GI Surgeries/Procedures: spleenectomy Neurological Surgical History: Reports: Spinal Fusion Musculoskeletal Surgical History: Reports: None Social & Family History - Tobacco Use Smoking Status *Q: Current Every Day Smoker Years of Tobacco use: 41 Packs/Tins Daily: 1 Used Tobacco, but Quit: No Second Hand Smoke Exposure: No - Caffeine Use Caffeine Use: Reports: Coffee, Soda - Recreational Drug Use Recreational Drug Use: No - Living Situation & Occupation Living situation: Reports: Single Occupation: Disabled H&P Review of Systems - Review of Systems: Review Of Systems: See Below General: Reports: No Symptoms HEENT: Reports: No Symptoms Pulmonary: Reports: Shortness of Breath, Wheezing Cardiovascular: Reports: Chest Pain, Edema Gastrointestinal: Reports: No Symptoms Genitourinary: Reports: No Symptoms Musculoskeletal: Reports: No Symptoms Skin: Reports: No Symptoms Psychiatric: Reports: No Symptoms Neurological: Reports: No Symptoms Hematologic/Lymphatic: Reports: No Symptoms Immunologic: Reports: No Symptoms Exam - Exam Exam: See Below - Vital Signs Vital Signs: Last Vital Signs Temp 36.6 C 07/10/20 07:30 Pulse 92 07/10/20 07:30 Resp 20 07/10/20 07:30 BP 167/97 H 07/10/20 07:30 Pulse Ox 92 L 07/10/20 07:40 Weight: 95.7 kg - Exam Quality Assessment: Supplemental Oxygen General: Alert, Oriented, Cooperative HEENT: PERRLA, Hearing Intact, Mucosa Moist & [place], Nares Patent, Normal Nasal Septum, Posterior Pharynx Clear, Conjunctiva Clear, EOMI, EACs Clear, TMs Clear Neck: Supple, Trachea Midline, 2 Lungs: Normal Respiratory Effort, Crackles, Wheezing. No: Clear to Auscultation Cardiovascular: Regular Rate, Regular Rhythm, Normal S1, Normal S2, Systolic Murmur (5/6) GI/Abdominal Exam: Normal Bowel Sounds, Soft, Non-Tender, No Organomegaly, No Distention, No Abnormal Bruit, No Mass, Pelvis Stable (Male) Exam: Deferred Rectal (Males) Exam: Deferred Back Exam: Normal Inspection, Full Range of Motion, NT Extremities: Normal Inspection, Normal Range of Motion, Non-Tender, Pedal Edema Skin: Warm, Dry, Intact Neurological: Cranial Nerves Intact, Reflexes Equal Bilateral Neuro Extensive - Mental Status: Alert, Oriented x3, Normal Mood/Affect, Normal Cognition Neuro Extensive - Motor, Sensory, Reflexes: CN II-XII Intact Psychiatric: Alert (TBI), Normal Affect, Normal Mood - Patient Data Lab Results Last 24 hrs: Laboratory Results - last 24 hr 07/10/20 07/10/20 07/10/20 Range/Units 03:25 03:25 03:25 WBC 13.0 H (4.5-11.0) K/uL RBC 4.19 L (4.30-5.90) M/uL Hgb 13.7 (12.0-15.0) g/dL Hct 42.6 (40.0-54.0) % MCV 102 H (80-98) fL MCH 33 H (27-31) pg MCHC 32 (32-36) % Plt Count 304 (150-400) K/uL Neut % (Auto) 55 (36-66) % Lymph % (Auto) 31 (24-44) % [place] % (Auto) 10 H (2-6) % Eos % (Auto) 2 (2-4) % Baso % (Auto) 1 (0-1) % D-Dimer, Quantitative 174 (0.0-400.0) ng/mL Sodium 143 (140-148) mmol/L Potassium 4.5 (3.6-5.2) mmol/L Chloride 107 (100-108) mmol/L Carbon Dioxide 26 (21-32) mmol/L Anion Gap 9.7 (5.0-14.0) mmol/L BUN 28 H D (7-18) mg/dL Creatinine 1.1 (0.8-1.3) mg/dL Est Cr Clr Drug Dosing 81.32 mL/min Estimated GFR (MDRD) > 60 (>60) Glucose 112 H (74-106) mg/dL Calcium 8.8 (8.5-10.1) mg/dL Total Bilirubin 0.6 (0.2-1.0) mg/dL AST 15 (15-37) U/L ALT 11 L (12-78) U/L Alkaline Phosphatase 71 (46-116) U/L Troponin I < 0.017 (0.000-0.056) ng/mL NT-Pro-B Natriuret Pep (5-125) pg/mL Total Protein 6.7 (6.4-8.2) g/dL Albumin 3.5 (3.4-5.0) g/dL Globulin 3.2 (2.3-3.5) g/dL Albumin/Globulin Ratio 1.1 L (1.2-2.2) SARS-CoV-2 RNA (DAVID) (NEGATIVE) 07/10/20 07/10/20 Range/Units 03:25 04:25 WBC (4.5-11.0) K/uL RBC (4.30-5.90) M/uL Hgb (12.0-15.0) g/dL Hct (40.0-54.0) % MCV (80-98) fL MCH (27-31) pg MCHC (32-36) % Plt Count (150-400) K/uL Neut % (Auto) (36-66) % Lymph % (Auto) (24-44) % Jerauld % (Auto) (2-6) % Eos % (Auto) (2-4) % Baso % (Auto) (0-1) % D-Dimer, Quantitative (0.0-400.0) ng/mL Sodium (140-148) mmol/L Potassium (3.6-5.2) mmol/L Chloride (100-108) mmol/L Carbon Dioxide (21-32) mmol/L Anion Gap (5.0-14.0) mmol/L BUN (7-18) mg/dL Creatinine (0.8-1.3) mg/dL Est Cr Clr Drug Dosing mL/min Estimated GFR (MDRD) (>60) Glucose (74-106) mg/dL Calcium (8.5-10.1) mg/dL Total Bilirubin (0.2-1.0) mg/dL AST (15-37) U/L ALT (12-78) U/L Alkaline Phosphatase (46-116) U/L Troponin I (0.000-0.056) ng/mL NT-Pro-B Natriuret Pep 432 H (5-125) pg/mL Total Protein (6.4-8.2) g/dL Albumin (3.4-5.0) g/dL Globulin (2.3-3.5) g/dL Albumin/Globulin Ratio (1.2-2.2) SARS-CoV-2 RNA (DAVID) Negative (NEGATIVE) Result Diagrams: 07/10/20 03:25 07/10/20 03:25 Sepsis Event Note - Evaluation Sepsis Screening Result: No Definite Risk - Focused Exam Vital Signs: Vital Signs Temp Pulse Resp BP Pulse Ox 07/10/20 07:40 92 L 07/10/20 07:30 36.6 C 92 20 167/97 H 84 L 07/10/20 05:31 36.4 C 76 16 126/84 91 L 07/10/20 04:11 37.1 C 89 32 H 142/88 H 94 L 07/10/20 03:15 84 29 H 145/88 H 93 L 07/10/20 03:00 36.6 C 90 21 H 131/84 84 L 07/10/20 02:47 79 29 H 131/84 95 - Problem List (1) COPD exacerbation SNOMED Code(s): 388306716 ICD Code: J44.1 - CHRONIC OBSTRUCTIVE PULMONARY DISEASE W (ACUTE) EXACERBATION Status: Acute Priority: High Current Visit: Yes Onset Date: Unknown Problem Details: Patient is hypoxic on RA but is sating better on O2. Patient is breathing through his mouth which is decreasing the effectiveness of his nasal cannula. Patien given nebs in the ED which helped. Will add albuterol nebs as well as budesnide. Patient given dexamethasone in the ED. Will do ABG to check for CO2/O2 levels. Patient may require HFNC or other interventions while here if his O2 sats continue to drop refractory to O2 supplementation. Patient started on Rocephin in the ED and azithromycin 500mg has been ordered this morning. (2) Heart murmur SNOMED Code(s): 43451816 ICD Code: R01.1 - CARDIAC MURMUR, UNSPECIFIED Status: Acute Current Visit: Yes Onset Date: Unknown Problem Details: Patient has loud systolic murmur and pedal edema that is supposed to be worked up in [place] on Friday. he is uncertain of what has been done. May need order echocardiogram as it is uncertain if one has been performed. Additionally will give patient dose of lasix as this may be contributing to patient's hypoxia (3) Hypoxia SNOMED Code(s): 284829497 ICD Code: R09.02 - HYPOXEMIA Status: Acute Current Visit: Yes Onset Date: ~07/10/20 Problem Details: Will treat for COPD exacerbation as well as possible CHF, patient will be monitored as well by RT. Patient may require HFNC, bipap, or intubation, although unlikely. ABG will be run. (4) Essential hypertension SNOMED Code(s): 89235490 ICD Code: I10 - ESSENTIAL (PRIMARY) HYPERTENSION Status: Chronic Current Visit: No Onset Date: Unknown Problem Details: Will continue patient's metoprolol (5) GERD (gastroesophageal reflux disease) SNOMED Code(s): 577472712 ICD Code: K21.9 - GASTRO-ESOPHAGEAL REFLUX DISEASE WITHOUT ESOPHAGITIS Status: Chronic Current Visit: No Problem Details: Will continue patient's famotidine Qualifiers: Esophagitis presence: esophagitis presence not specified Qualified Code(s): K21.9 - Gastro-esophageal reflux disease without esophagitis (6) TBI (traumatic brain injury) SNOMED Code(s): 677143872 ICD Code: S06.9X9A - UNSP INTRACRANIAL INJURY W LOC OF UNSP DURATION, INIT Status: Chronic Current Visit: No Problem Details: Likely presents a challe nge to patient understanding his health conditions, their severity, and treatment plans. Patient does agree to treatments, but again, this may impair his ability to fully understand. Qualifiers: Encounter type: sequela (7) Tobacco use SNOMED Code(s): 124199339 ICD Code: Z72.0 - TOBACCO USE Status: Chronic Current Visit: No Problem Details: Patient is not interested in quitting at this time Problem List Initiated/Reviewed/Updated: Yes Orders Last 24hrs: Active Orders 24 hr Category Date Time Status Patient Status [ADT] Routine ADT 07/10/20 04:29 Active Height and Weight [RC] DAILY Care 07/10/20 04:29 Active Intake and Output [RC] QSHIFT Care 07/10/20 04:32 Active Oxygen Therapy [RC] PRN Care 07/10/20 04:29 Active Pulse Oximetry [RC] CONTINUOUS Care 07/10/20 04:32 Active RT Aerosol Therapy [RC] ASDIRECTED Care 07/10/20 03:19 Active RT Aerosol Therapy [RC] ASDIRECTED Care 07/10/20 04:30 Active RT Aerosol Therapy [RC] ASDIRECTED Care 07/10/20 07:50 Ordered Up ad [place] [RC] ASDIRECTED Care 07/10/20 04:29 Active Vital Signs [RC] Q4H Care 07/10/20 04:29 Active Respiratory Care Assess [CONS] Routine Cons 07/10/20 07:57 Ordered 2 Gram Sodium Diet [DIET] Diet 07/10/20 Breakfast Active Chest 2V [CR] Urgent Exams 07/10/20 03:17 Taken ABG [BLOOD GAS ARTERIAL] [BG] Routine Lab 07/10/20 07:57 Ordered Acetaminophen [TylenoL] Med 07/10/20 04:29 Active 650 mg PO Q4H PRN Albuterol/Ipratropium [DuoNeb 3.0-0.5 MG/3 ML] Med 07/10/20 07:49 Ordered 3 ml NEB Q2H PRN Albuterol/Ipratropium [DuoNeb 3.0-0.5 MG/3 ML] Med 07/10/20 04:29 Active 3 ml NEB Q4H PRN Aspirin Med 07/10/20 09:00 Active 325 mg PO DAILY Azithromycin [Zithromax] Med 07/10/20 09:00 Ordered 500 mg PO DAILY Budesonide [Pulmicort] Med 07/10/20 21:00 Ordered 0.5 mg NEB BIDRT DULoxetine [Cymbalta] Med 07/10/20 09:00 Active 60 mg PO DAILY Enoxaparin [Lovenox] Med 07/10/20 09:00 Active 40 mg SUBCUT DAILY Famotidine [Pepcid] Med 07/10/20 09:00 Active 40 mg PO DAILY Furosemide [Lasix] Med 07/10/20 07:49 Once 20 mg IVPUSH ONETIME ONE Gabapentin [Neurontin] Med 07/10/20 09:00 Active 800 mg PO TID Metoprolol Succinate [Toprol XL] Med 07/10/20 09:00 Active 25 mg PO DAILY Naproxen [Naprosyn] Med 07/10/20 09:00 Active 500 mg PO BID Ondansetron [Zofran ODT] Med 07/10/20 04:29 Active 4 mg PO Q6H PRN Sodium Chloride 0.9% [Saline Flush] Med 07/10/20 04:29 Active 10 ml FLUSH ASDIRECTED PRN atorvaSTATin [Lipitor] Med 07/10/20 09:00 Active 40 mg PO DAILY lisinopriL [Prinivil] Med 07/10/20 09:00 Active 5 mg PO DAILY Saline Lock Insert [OM.PC] Routine Oth 07/10/20 04:29 Ordered Resuscitation Status Routine Resus Stat 07/10/20 04:29 Ordered EKG 12 Lead [EK] Urgent Ther 07/10/20 03:17 Ordered Medication Orders Acetaminophen (Tylenol) 650 mg PO Q4H PRN PRN Reason: Pain (Mild 1-3)/fever Albuterol/Ipratropium (Duoneb 3.0-0.5 Mg/3 Ml) 3 ml NEB Q4H PRN PRN Reason: Dyspnea Last Admin: 07/10/20 07:32 Dose: 3 ml Documented by: PINOLAU Albuterol/Ipratropium (Duoneb 3.0-0.5 Mg/3 Ml) 3 ml NEB Q2H PRN PRN Reason: Wheezing Aspirin (Aspirin) 325 mg PO DAILY [facility] Atorvastatin Calcium (Lipitor) 40 mg PO DAILY [facility] Azithromycin (Zithromax) 500 mg PO DAILY [facility] Budesonide (Pulmicort) 0.5 mg NEB BIDRT [facility] Duloxetine HCl (Cymbalta) 60 mg PO DAILY [facility] Enoxaparin Sodium (Lovenox) 40 mg SUBCUT DAILY JOSE Famotidine (Pepcid) 40 mg PO DAILY [facility] Furosemide (Lasix) 20 mg IVPUSH ONETIME ONE Stop: 07/10/20 07:50 Gabapentin (Neurontin) 800 mg PO TID [facility] Lisinopril (Prinivil) 5 mg PO DAILY [facility] Metoprolol Succinate (Toprol Xl) 25 mg PO DAILY [facility] Naproxen (Naprosyn) 500 mg PO BID [facility] Ondansetron HCl (Zofran Odt) 4 mg PO Q6H PRN PRN Reason: Nausea able to take PO Sodium Chloride (Saline Flush) 10 ml FLUSH ASDIRECTED PRN PRN Reason: Keep Vein Open
[2020-07-10] MEDS ORDERED: Furosemide 20 MG/2 ML VIAL IVPUSH ONE (08:10)
[2020-07-10] MEDS: Budesonide 0.5 MG/2 ML Neb Susp NEB SCH ×2 (08:21→20:10)
[2020-07-10] MEDS ORDERED: Famotidine 20 MG Tab PO SCH (09:00)
[2020-07-10] MEDS: Azithromycin 250 MG Tab PO SCH (10:32)
[2020-07-10] MEDS: Enoxaparin 40 MG/0.4 ML Syringe SUBCUT SCH (10:32)
[2020-07-10] MEDS: DULoxetine 30 MG Cap PO SCH (10:32)
--- NOTE | 2020-07-10 10:36 | CR ---
CHEST: 2 view CLINICAL HISTORY:SOB COMPARISON:06/23/2020 FINDINGS: Heart is mildly enlarged. Patient has had previous sternotomy. Pulmonary vascularity is cephalized. There is diffuse interstitial edema. There are small bibasal effusions. These have increased slightly since prior study. Impression: Mild cardiomegaly Changes of CHF similar to prior study Small but increasing bibasal effusions.
[2020-07-10] MEDS: Metoprolol Succinate 25 MG Tab.ER PO SCH (10:37)
[2020-07-10] MEDS: Gabapentin 400 MG Cap PO SCH ×3 (10:41→20:06)
[2020-07-10] MEDS: Aspirin 81 MG Tab.Chew PO SCH (10:42)
[2020-07-10] MEDS: atorvaSTATin 20 MG Tab PO SCH (10:42)
[2020-07-10] MEDS: Lisinopril 5 MG Tab PO SCH (10:43)
[2020-07-10] MEDS ORDERED: Albuterol 0.083% 2.5 MG/3 ML Neb Soln NEB PRN (12:40)
[2020-07-10] MEDS: Naproxen 250 MG Tab PO SCH ×2 (13:30→20:06)
[2020-07-10] MEDS: methylPREDNISolone Sodium Succinate 125 MG/2 ML SDV IVPUSH SCH ×2 (13:39→21:46)
[2020-07-10] MEDS: Albuterol/Ipratropium 3.0-0.5 MG/3 ML Neb Soln NEB SCH ×2 (14:40→20:05)
[2020-07-10] MEDS: cefTRIAXone 1 GM in Sodium Chloride 0.9% 50 ML IV SCH (15:54)
[2020-07-10] MEDS: Lactobacillus Rhamnosus GG (Probiotic) Cap PO SCH (20:06)
[2020-07-11] MEDS: cefTRIAXone 1 GM in Sodium Chloride 0.9% 50 ML IV SCH (03:38)
[2020-07-11] MEDS: methylPREDNISolone Sodium Succinate 125 MG/2 ML SDV IVPUSH SCH (05:10)
[2020-07-11] MEDS: Budesonide 0.5 MG/2 ML Neb Susp NEB SCH ×2 (07:08→20:32)
[2020-07-11] MEDS: Albuterol/Ipratropium 3.0-0.5 MG/3 ML Neb Soln NEB SCH ×4 (07:08→20:32)
[2020-07-11] MEDS: Pantoprazole 40 MG Tab.CR PO SCH (08:42)
[2020-07-11] MEDS: atorvaSTATin 20 MG Tab PO SCH (08:44)
[2020-07-11] MEDS: Metoprolol Succinate 25 MG Tab.ER PO SCH (08:44)
[2020-07-11] MEDS: Gabapentin 400 MG Cap PO SCH ×3 (08:44→20:32)
[2020-07-11] MEDS: Naproxen 250 MG Tab PO SCH ×2 (08:45→20:32)
[2020-07-11] MEDS: Lactobacillus Rhamnosus GG (Probiotic) Cap PO SCH ×2 (08:45→20:32)
[2020-07-11] MEDS: Lisinopril 5 MG Tab PO SCH (08:45)
[2020-07-11] MEDS: Aspirin 81 MG Tab.Chew PO SCH (08:46)
[2020-07-11] MEDS: Enoxaparin 40 MG/0.4 ML Syringe SUBCUT SCH (08:47)
[2020-07-11] MEDS: DULoxetine 30 MG Cap PO SCH (08:47)
[2020-07-11] MEDS: Azithromycin 250 MG Tab PO SCH (08:47)
--- NOTE | 2020-07-11 11:44 | PCM.PN ---
- General Info Date of Service: 07/11/20 Subjective Update: No acute events overnight. He did have multiple episodes of desaturation consistent with severe sleep apnea. Saturations rebound when he is awake. He says that he feels very well this morning and wants to go home. He does not feel short of breath. Cough is much better. He is still on 4 L of supplemental oxygen at this time. He has not had any fevers. No GI complaints. Functional Status: Reports: Pain Controlled, Tolerating Diet - Review of Systems General: Denies: Fever Pulmonary: Reports: Cough (mild). Denies: Shortness of Breath - Patient Data Vitals - Most Recent: Last Vital Signs Temp 36.1 C 07/11/20 10:40 Pulse 102 H 07/11/20 10:57 Resp 18 07/11/20 10:40 BP 116/67 07/11/20 10:40 Pulse Ox 92 L 07/11/20 10:57 Weight - Most Recent: 95.708 kg I&O - Last 24 Hours: Intake & Output 07/10/20 07/11/20 07/11/20 22:59 06:59 14:59 Intake Total 410 Output Total 402 Balance 8 Lab Results Last 24 Hours: Laboratory Results - last 24 hr 07/11/20 07/11/20 Range/Units 04:15 04:15 WBC 20.3 H (4.5-11.0) K/uL RBC 4.38 (4.30-5.90) M/uL Hgb 14.1 (12.0-15.0) g/dL Hct 45.1 (40.0-54.0) % MCV 103 H (80-98) fL MCH 32 H (27-31) pg MCHC 31 L (32-36) % Plt Count 305 (150-400) K/uL Sodium 140 (140-148) mmol/L Potassium 4.8 (3.6-5.2) mmol/L Chloride 104 (100-108) mmol/L Carbon Dioxide 27 (21-32) mmol/L Anion Gap 9.3 (5.0-14.0) mmol/L BUN 25 H (7-18) mg/dL Creatinine 1.0 (0.8-1.3) mg/dL Est Cr Clr Drug Dosing 89.58 mL/min Estimated GFR (MDRD) > 60 (>60) Glucose 144 H (74-106) mg/dL Calcium 9.1 (8.5-10.1) mg/dL Med Orders - Current: Current Medications Acetaminophen (Tylenol) 650 mg PO Q4H PRN PRN Reason: Pain (Mild 1-3)/fever Albuterol (Proventil Neb Soln) 2.5 mg NEB Q2H PRN PRN Reason: shortness of breath/wheezing Last Admin: 07/11/20 04:14 Dose: 2.5 mg Documented by: Albuterol/Ipratropium (Duoneb 3.0-0.5 Mg/3 Ml) 3 ml NEB QIDRT COUNTS INCLUDE 234 BEDS AT [facility] Last Admin: 07/11/20 10:57 Dose: 3 ml Documented by: Aspirin (Aspirin) 325 mg PO DAILY COUNTS INCLUDE 234 BEDS AT THE [facility] Last Admin: 07/11/20 08:46 Dose: 325 mg Documented by: Atorvastatin Calcium (Lipitor) 40 mg PO DAILY COUNTS INCLUDE 234 BEDS AT THE [facility] Last Admin: 07/11/20 08:44 Dose: 40 mg Documented by: Azithromycin (Zithromax) 500 mg PO DAILY COUNTS INCLUDE 234 BEDS AT [facility] Last Admin: 07/11/20 08:47 Dose: 500 mg Documented by: Budesonide (Pulmicort) 0.5 mg NEB BIDRT COUNTS INCLUDE 234 BEDS AT THE [facility] Last Admin: 07/11/20 07:08 Dose: 0.5 mg Documented by: Cefdinir (Omnicef) 300 mg PO BID COUNTS INCLUDE 234 BEDS AT THE [facility] Duloxetine HCl (Cymbalta) 60 mg PO DAILY COUNTS INCLUDE 234 BEDS AT [facility] Last Admin: 07/11/20 08:47 Dose: 60 mg Documented by: Enoxaparin Sodium (Lovenox) 40 mg SUBCUT DAILY COUNTS INCLUDE 234 BEDS AT THE [facility] Last Admin: 07/11/20 08:47 Dose: 40 mg Documented by: Gabapentin (Neurontin) 800 mg PO TID COUNTS INCLUDE 234 BEDS AT [facility] Last Admin: 07/11/20 08:44 Dose: 800 mg Documented by: Lactobacillus Rhamnosus (Culturelle) 1 cap PO BID COUNTS INCLUDE 234 BEDS AT [facility] Last Admin: 07/11/20 08:45 Dose: 1 cap Documented by: Lisinopril (Prinivil) 5 mg PO DAILY COUNTS INCLUDE 234 BEDS AT [facility] Last Admin: 07/11/20 08:45 Dose: 5 mg Documented by: Metoprolol Succinate (Toprol Xl) 25 mg PO DAILY COUNTS INCLUDE 234 BEDS AT [facility] Last Admin: 07/11/20 08:44 Dose: 25 mg Documented by: Naproxen (Naprosyn) 500 mg PO BID COUNTS INCLUDE 234 BEDS AT [facility] Last Admin: 07/11/20 08:45 Dose: 500 mg Documented by: Ondansetron HCl (Zofran Odt) 4 mg PO Q6H PRN PRN Reason: Nausea able to take PO Pantoprazole Sodium (Protonix) 40 mg PO ACBREAKFAST COUNTS INCLUDE 234 BEDS AT THE [facility] Last Admin: 07/11/20 08:42 Dose: 40 mg Documented by: Prednisone (Prednisone) 20 mg PO BIDAC COUNTS INCLUDE 234 BEDS AT THE [facility] Sodium Chloride (Saline Flush) 10 ml FLUSH ASDIRECTED PRN PRN Reason: Keep Vein Open Discontinued Medications Albuterol/Ipratropium (Duoneb 3.0-0.5 Mg/3 Ml) 3 ml NEB ONETIME ONE Stop: 07/10/20 03:20 Last Admin: 07/10/20 03:25 Dose: 3 ml Documented by: Albuterol/Ipratropium (Duoneb 3.0-0.5 Mg/3 Ml) 3 ml NEB Q4H PRN PRN Reason: Dyspnea Last Admin: 07/10/20 07:32 Dose: 3 ml Documented by: Albuterol/Ipratropium (Duoneb 3.0-0.5 Mg/3 Ml) 3 ml NEB Q2H PRN PRN Reason: Wheezing Last Admin: 07/10/20 10:59 Dose: 3 ml Documented by: Famotidine (Pepcid) 40 mg PO DAILY COUNTS INCLUDE 234 BEDS AT [facility] Last Admin: 07/10/20 10:42 Dose: 40 mg Documented by: Furosemide (Lasix) 20 mg IVPUSH ONETIME ONE Stop: 07/10/20 08:11 Last Admin: 07/10/20 08:30 Dose: 20 mg Documented by: Ceftriaxone Sodium 1 gm/ (Sodium Chloride) 50 mls @ 100 mls/hr IV ONETIME ONE Stop: 07/10/20 05:04 Last Admin: 07/10/20 06:20 Dose: 100 mls/hr Documented by: Ceftriaxone Sodium 1 gm/ (Sodium Chloride) 50 mls @ 100 mls/hr IV Q12H COUNTS INCLUDE 234 BEDS AT THE [facility] Last Admin: 07/11/20 03:38 Dose: 100 mls/hr Documented by: Methylprednisolone Sodium Succinate (Solu-Medrol) 40 mg IVPUSH ONETIME ONE Stop: 07/10/20 04:26 Last Admin: 07/10/20 04:43 Dose: 40 mg Documented by: Methylprednisolone Sodium Succinate (Solu-Medrol) 62.5 mg IVPUSH Q8H JOSE Last Admin: 07/11/20 05:10 Dose: 62.5 mg Documented by: - Exam Quality Assessment: Supplemental Oxygen General: Alert, Oriented, Cooperative, No Acute Distress Lungs: Clear to Auscultation, Normal Respiratory Effort. No: Wheezing Cardiovascular: Regular Rate, Regular Rhythm GI/Abdominal Exam: Soft, No Distention Extremities: Pedal Edema. No: Increased Warmth Skin: Warm, Dry Psy/Mental Status: Alert, Normal Affect Sepsis Event Note - Evaluation Sepsis Screening Result: No Definite Risk - Focused Exam Vital Signs: Vital Signs Temp Pulse Pulse Resp BP BP Pulse Ox 07/11/20 10:57 102 H 07/11/20 10:40 36.1 C 99 18 116/67 94 L 07/11/20 08:45 118/71 07/11/20 08:44 68 118/71 07/11/20 07:27 92 L 07/11/20 07:00 36.0 C L 115 H 20 122/91 H 90 L 07/11/20 03:39 35.7 C L 96 22 H 107/63 95 07/11/20 01:09 97 Pulse Ox 07/11/20 10:57 92 L 07/11/20 10:40 07/11/20 08:45 07/11/20 08:44 07/11/20 07:27 07/11/20 07:00 07/11/20 03:39 07/11/20 01:09 - Problem List Review Problem List Initiated/Reviewed/Updated: Yes - My Orders Last 24 Hours: My Active Orders 07/10/20 12:40 RT Aerosol Therapy [RC] ASDIRECTED Albuterol [Proventil Neb Soln] 2.5 mg NEB Q2H PRN 07/10/20 15:00 Albuterol/Ipratropium [DuoNeb 3.0-0.5 MG/3 ML] 3 ml NEB QIDRT 07/10/20 21:00 Lactobacillus Rhamnosus GG [Culturelle] 1 cap PO BID 07/11/20 11:34 Evaluate for Home Oxygen [RT Evaluate for Home Oxygen] [RC] Click to Edit 07/11/20 16:30 predniSONE 20 mg PO BIDAC 07/11/20 21:00 Cefdinir [Omnicef] 300 mg PO BID - Plan Plan:: ASSESSMENT AND PLAN - Acute bronchitis-complicated by an exacerbation of COPD and acute respiratory f ailure. Seems to be doing better today. No wheezing and better air movement. Still requiring quite a bit of supplemental oxygen. Sputum culture pending. Clinically feeling much better. He has qualified for home oxygen with desaturation into the 70s today. -Continue doxycycline and transition to Cefdinir from ceftriaxone -Follow-up culture -Supplement oxygen -Transition steroids to prednisone -Wean oxygen as able Flail posterior mitral leaflet-noted on echocardiogram the day of admission. Normal left ventricular ejection fraction. No evidence for congestive heart failure at this time. Functional status prior to getting sick had been acceptable. I did discuss the case with cardiology today and they recommended outpatient follow-up with a transesophageal echocardiogram and potentially valve repair surgery. -Outpatient cardiology follow-up Severe sleep apnea-multiple and prolonged episodes of sleep apnea are noted. He has previously not been compliant with sleep apnea treatment but is interested in repeat evaluation and treatment to help with his fatigue and cardiac issues. -Outpatient sleep study Coronary artery disease-history of bypass about 20 years ago. No recent anginal symptoms. Tobacco dependence-encourage cessation History of TBI Maintenance issues - - DVT prophylaxis -enoxaparin - GI prophylaxis -PPI - Nutrition -regular Admission justification -patient is currently admitted to observation status Disposition -I would anticipate discharge home after the hospital stay Stewart Frederick M.D.
[2020-07-11] MEDS: predniSONE 20 MG Tab PO SCH (17:13)
[2020-07-11] MEDS: Cefdinir 300 MG Cap PO SCH (20:32)
[2020-07-12] MEDS: Albuterol/Ipratropium 3.0-0.5 MG/3 ML Neb Soln NEB SCH ×2 (07:13→11:00)
[2020-07-12] MEDS: Budesonide 0.5 MG/2 ML Neb Susp NEB SCH (07:13)
[2020-07-12] MEDS: predniSONE 20 MG Tab PO SCH (07:40)
[2020-07-12] MEDS: Pantoprazole 40 MG Tab.CR PO SCH (07:40)
[2020-07-12] MEDS: Enoxaparin 40 MG/0.4 ML Syringe SUBCUT SCH (08:11)
[2020-07-12] MEDS: Lactobacillus Rhamnosus GG (Probiotic) Cap PO SCH (08:12)
[2020-07-12] MEDS: Cefdinir 300 MG Cap PO SCH (08:12)
[2020-07-12] MEDS: Lisinopril 5 MG Tab PO SCH (08:12)
[2020-07-12] MEDS: atorvaSTATin 20 MG Tab PO SCH (08:12)
[2020-07-12] MEDS: Azithromycin 250 MG Tab PO SCH (08:12)
[2020-07-12] MEDS: Naproxen 250 MG Tab PO SCH (08:12)
[2020-07-12] MEDS: Aspirin 81 MG Tab.Chew PO SCH (08:13)
[2020-07-12] MEDS: DULoxetine 30 MG Cap PO SCH (08:14)
[2020-07-12] MEDS: Metoprolol Succinate 25 MG Tab.ER PO SCH (08:15)
[2020-07-12] MEDS: Gabapentin 400 MG Cap PO SCH (08:15)
[2020-07-12 10:56] VITALS: BP 121/79
[2020-07-12 11:01] VITALS: PULSE 98
--- NOTE | 2020-07-12 11:02 | PCM.DCSUM1 ---
Discharge Summary - Hospital Course Brief History: 55-year-old male with history of a traumatic brain injury, obstructive sleep apnea not currently being treated and tobacco dependence who presented with increasing cough and shortness of breath. He is admitted for management of bronchitis with acute respiratory failure with hypoxia and hypercapnia. Diagnosis: Stroke: No - Discharge Data Discharge Date: 07/12/20 Discharge Disposition: Home, Self-Care 01 Condition: Fair - Referral to Home Health Primary Care Physician: PCP None - Discharge Diagnosis/Problem(s) (1) Acute bronchitis SNOMED Code(s): 96697599 ICD Code: J20.9 - ACUTE BRONCHITIS, UNSPECIFIED Status: Acute Qualifiers: Bronchitis organism: unspecified organism Qualified Code(s): J20.9 - Acute bronchitis, unspecified (2) Acute respiratory failure with hypoxia and hypercapnia SNOMED Code(s): 370149420 ICD Code: J96.01 - ACUTE RESPIRATORY FAILURE WITH HYPOXIA; J96.02 - ACUTE RESPIRATORY FAILURE WITH HYPERCAPNIA Status: Acute (3) Obstructive sleep apnea hypopnea, severe SNOMED Code(s): 81222130 ICD Code: G47.33 - OBSTRUCTIVE SLEEP APNEA (ADULT) (PEDIATRIC) Status: Chronic (4) Mitral valve failure SNOMED Code(s): 28861646 ICD Code: I34.0 - NONRHEUMATIC MITRAL (VALVE) INSUFFICIENCY Status: Acute Qualifiers: Cardiac valve disease etiology: nonrheumatic Qualified Code(s): I34.0 - Nonrheumatic mitral (valve) insufficiency (5) Tobacco use SNOMED Code(s): 453111572 ICD Code: Z72.0 - TOBACCO USE Status: Chronic Problem Details: Patient is not interested in quitting at this time - Patient Summary/Data Consults: Consultations 07/10/20 07:57 Respiratory Care Assess [CONS] Routine Comment: Physician Instructions: patient may require HFNC Hospital Course: Sav presented to the emergency room with several days of progressive cough and shortness of breath. Work-up in the emergency room initially was a little bit ambiguous with concern for respiratory infection but also possibly congestive heart failure. He received antibiotics and a dose of furosemide. He received a small dose of steroids. He was quite hypoxic and required 4 to 5 L of supplemental oxygen. He was admitted to the hospital for further management. Shortly after admission to the hospital he did have an echocardiogram. 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 He had a normal inferior vena cava so his volume status seemed appropriate and additional diuresis was not undertaken. We continued antibiotic coverage with a azithromycin and ceftriaxone as well as IV steroids. He did have some wheezing initially but this calm down fairly quickly. Over the couple of days in the hospital we were able to slowly wean him off his supplemental oxygen. He has not had any fevers. His white count initially jumped up after the steroids were started but then has trended down. Clinically he is feeling much better. His shortness of breath is dramatically improved. His wheezing has resolved. He is off supplemental oxygen. He has been transitioned to oral antibiotics and oral steroids. The plan is for him to complete a total of 5 days of antibiotics and steroids but is doing well from a breathing standpoint. Regarding the probable flail posterior mitral valve leaflet, I did talk to the cardiology folks out in [place]. They recommended follow-up in the clinic and he will likely need a MANUEL for further evaluation and most likely he will need an open heart surgery to repair the valve. At this point he has a normal ejection fraction and no evidence for congestive heart failure. I believe he is safe for outpatient management of this condition at this time. Also noted during the hospital stay was severe sleep apnea. The patient has very prolonged episodes of apnea with oxygen saturations that dropped down into the 70s. This did partially respond to supplemental oxygen. He would benefit from an urgent referral for a sleep study and CPAP titration. We did set him up for home oxygen which she will be using to help especially at night. - Patient Instructions Diet: Regular Diet as Tolerated Activity: As Tolerated Showering/Bathing: May Shower Notify Provider of: Fever, Increased Pain Other/Special Instructions: 1. You were in the hospital for management of acute bronchitis with an acute exacerbation of reactive airway disease. Your condition has been improving with steroids and antibiotic therapy. I do recommend ongoing antibiotic therapy with both a azithromycin and Cefdinir. You should take a azithromycin 500 mg daily for 2 days starting tomorrow. You should take cefdinir twice daily for 5 doses starting tonight. I also recommend that you take prednisone 20 mg twice daily with meals for 5 doses. Your first dose will be due tonight with supper. This is an anti-inflammatory that will help relieve the inflammation in your upper airways that likely resulted from irritation from the insulation. You may increase your activity as tolerated but you should take a break and rest if you feel short of breath or fatigued. 2. During the hospital stay we noted that you have severe sleep apnea. I encourage you to follow-up urgently with your primary care provider and discuss being scheduled for a sleep study. Untreated sleep apnea can lead to prolonged stress on the body and especially on the heart and lead to a significant decrease in your quality of life and early . 3. Also during the hospital stay we com pleted an echocardiogram that raised concern that you have a flail mitral leaflet. There is an appointment scheduled on Friday to see a warp tier for further evaluation. 4. Continue your other medications as previously prescribed. - Discharge Plan *PRESCRIPTION DRUG MONITORING PROGRAM REVIEWED*: Not Applicable *COPY OF PRESCRIPTION DRUG MONITORING REPORT IN PATIENT ELIEL: Not Applicable Prescriptions/Med Rec: Azithromycin 500 mg PO DAILY #2 tablet Cefdinir [Omnicef] 300 mg PO BID #5 cap predniSONE 20 mg PO BIDMEALS #5 tablet Home Medications: Home Meds Aspirin [Emi Chewable Aspirin] 325 mg PO DAILY 05/20/14 [History] Metoprolol Succinate [Toprol XL] 25 mg PO DAILY 09/09/16 [History] Omeprazole 40 mg PO DAILY 09/09/16 [History] Gabapentin [Neurontin] 800 mg PO TID 04/27/19 [History] Naproxen 500 mg PO BID 05/04/19 [History] Acetaminophen 1,000 mg PO TID 06/23/20 [History] DULoxetine [Cymbalta] 60 mg PO DAILY 06/23/20 [History] atorvaSTATin [Lipitor] 40 mg PO DAILY 06/23/20 [History] lisinopriL [Lisinopril] 5 mg PO DAILY 06/23/20 [History] Azithromycin 500 mg PO DAILY #2 tablet 07/12/20 [Rx] Cefdinir [Omnicef] 300 mg PO BID #5 cap 07/12/20 [Rx] predniSONE 20 mg PO BIDMEALS #5 tablet 07/12/20 [Rx] Oxygen Therapy Mode: Nasal Cannula (3 L/min) Patient Handouts: Sleep Apnea, Acute Bronchitis, Adult Referrals: Sarah Maya MD [Ordering Only Provider] - 07/17/20 12:30 pm (Arrive 15 minutes early to register for your appointment.) Ruddy Rodriguez MD [Family Provider] - 07/14/20 2:00 pm (YOUR APPOINTMENT WITH DR. RODRIGUEZ IS AT THE [facility]. Please arrive 15 minutes early to register for your appintment.) - Discharge Summary/Plan Comment DC Time >30 min.: Yes (45-coordinating outpatient follow-up and additional testing) - Patient Data Vitals - Most Recent: Last Vital Signs Temp 36.1 C 07/12/20 10:54 Pulse 103 H 07/12/20 10:54 Resp 16 07/12/20 10:54 BP 121/79 07/12/20 10:54 Pulse Ox 93 L 07/12/20 10:54 Weight - Most Recent: 95.708 kg I&O - Last 24 hours: Intake & Output 07/11/20 07/12/20 07/12/20 22:59 06:59 14:59 Intake Total 480 500 360 Balance 480 500 360 Med Orders - Current: Current Medications Acetaminophen (Tylenol) 650 mg PO Q4H PRN PRN Reason: Pain (Mild 1-3)/fever Albuterol (Proventil Neb Soln) 2.5 mg NEB Q2H PRN PRN Reason: shortness of breath/wheezing Last Admin: 07/11/20 04:14 Dose: 2.5 mg Documented by: Albuterol/Ipratropium (Duoneb 3.0-0.5 Mg/3 Ml) 3 ml NEB QIDRT [facility] Last Admin: 07/12/20 11:00 Dose: 3 ml Documented by: Aspirin (Aspirin) 325 mg PO DAILY [facility] Last Admin: 07/12/20 08:13 Dose: 324 mg Documented by: Atorvastatin Calcium (Lipitor) 40 mg PO DAILY [facility] Last Admin: 07/12/20 08:12 Dose: 40 mg Documented by: Azithromycin (Zithromax) 500 mg PO DAILY [facility] Last Admin: 07/12/20 08:12 Dose: 500 mg Documented by: Budesonide (Pulmicort) 0.5 mg NEB BIDRT [facility] Last Admin: 07/12/20 07:13 Dose: 0.5 mg Documented by: Cefdinir (Omnicef) 300 mg PO BID [facility] Last Admin: 07/12/20 08:12 Dose: 300 mg Documented by: Duloxetine HCl (Cymbalta) 60 mg PO DAILY [facility] Last Admin: 07/12/20 08:14 Dose: 60 mg Documented by: Enoxaparin Sodium (Lovenox) 40 mg SUBCUT DAILY [facility] Last Admin: 07/12/20 08:11 Dose: 40 mg Documented by: Gabapentin (Neurontin) 800 mg PO TID [facility] Last Admin: 07/12/20 08:15 Dose: 800 mg Documented by: Lactobacillus Rhamnosus (Culturelle) 1 cap PO BID [facility] Last Admin: 07/12/20 08:12 Dose: 1 cap Documented by: Lisinopril (Prinivil) 5 mg PO DAILY [facility] Last Admin: 07/12/20 08:12 Dose: 5 mg Documented by: Metoprolol Succinate (Toprol Xl) 25 mg PO DAILY [facility] Last Admin: 07/12/20 08:15 Dose: 25 mg Documented by: Naproxen (Naprosyn) 500 mg PO BID [facility] Last Admin: 07/12/20 08:12 Dose: 500 mg Documented by: Ondansetron HCl (Zofran Odt) 4 mg PO Q6H PRN PRN Reason: Nausea able to take PO Pantoprazole Sodium (Protonix) 40 mg PO ACBREAKFAST [facility] Last Admin: 07/12/20 07:40 Dose: 40 mg Documented by: Prednisone (Prednisone) 20 mg PO BIDMEALS [facility] Last Admin: 07/12/20 07:40 Dose: 20 mg Documented by: Sodium Chloride (Saline Flush) 10 ml FLUSH ASDIRECTED PRN PRN Reason: Keep Vein Open Discontinued Medications Albuterol/Ipratropium (Duoneb 3.0-0.5 Mg/3 Ml) 3 ml NEB ONETIME ONE Stop: 07/10/20 03:20 Last Admin: 07/10/20 03:25 Dose: 3 ml Documented by: Albuterol/Ipratropium (Duoneb 3.0-0.5 Mg/3 Ml) 3 ml NEB Q4H PRN PRN Reason: Dyspnea Last Admin: 07/10/20 07:32 Dose: 3 ml Documented by: Albuterol/Ipratropium (Duoneb 3.0-0.5 Mg/3 Ml) 3 ml NEB Q2H PRN PRN Reason: Wheezing Last Admin: 07/10/20 10:59 Dose: 3 ml Documented by: Famotidine (Pepcid) 40 mg PO DAILY [facility] Last Admin: 07/10/20 10:42 Dose: 40 mg Documented by: Furosemide (Lasix) 20 mg IVPUSH ONETIME ONE Stop: 07/10/20 08:11 Last Admin: 07/10/20 08:30 Dose: 20 mg Documented by: Ceftriaxone Sodium 1 gm/ (Sodium Chloride) 50 mls @ 100 mls/hr IV ONETIME ONE Stop: 07/10/20 05:04 Last Admin: 07/10/20 06:20 Dose: 100 mls/hr Documented by: Ceftriaxone Sodium 1 gm/ (Sodium Chloride) 50 mls @ 100 mls/hr IV Q12H [facility] Last Admin: 07/11/20 03:38 Dose: 100 mls/hr Documented by: Methylprednisolone Sodium Succinate (Solu-Medrol) 40 mg IVPUSH ONETIME ONE Stop: 07/10/20 04:26 Last Admin: 07/10/20 04:43 Dose: 40 mg Documented by: Methylprednisolone Sodium Succinate (Solu-Medrol) 62.5 mg IVPUSH Q8H [facility] Last Admin: 07/11/20 05:10 Dose: 62.5 mg Documented by: - Exam Quality Assessment: Denies: Supplemental Oxygen General: Reports: Alert, Oriented, Cooperative, No Acute Distress Lungs: Reports: Clear to Auscultation, Normal Respiratory Effort. Denies: Wheezing Cardiovascular: Reports: Regular Rate, Regular Rhythm Extremities: No Pedal Edema Psy/Mental Status: Reports: Alert, Normal Affect
== END 2020-07-12 12:11 | disposition home or self-care (01) | DRG 189 ==
LOC: JP.ED 02:47 → OBSVTOIN 04:29 → JP.MS 04:29
PROVIDERS: ADMIT Family Medicine; ATTEND Internal Medicine
DX: J96.01 Acute respiratory failure with hypoxia (principal); R09.02 Hypoxemia; J44.1 Chronic obstructive pulmonary disease with (acute) exacerbation; J44.0 Chronic obstructive pulmonary disease with (acute) lower respiratory infection; J96.02 Acute respiratory failure with hypercapnia; G47.33 Obstructive sleep apnea (adult) (pediatric); J20.9 Acute bronchitis, unspecified; I34.0 Nonrheumatic mitral (valve) insufficiency; G47.30 Sleep apnea, unspecified; H91.90 Unspecified hearing loss, unspecified ear; H54.7 Unspecified visual loss; I25.10 Atherosclerotic heart disease of native coronary artery without angina pectoris; Z90.81 Acquired absence of spleen; E78.00 Pure hypercholesterolemia, unspecified; F17.200 Nicotine dependence, unspecified, uncomplicated; J44.9 Chronic obstructive pulmonary disease, unspecified; Z88.6 Allergy status to analgesic agent; G89.29 Other chronic pain; M54.9 Dorsalgia, unspecified; F17.210 Nicotine dependence, cigarettes, uncomplicated; I10 Essential (primary) hypertension; K21.9 Gastro-esophageal reflux disease without esophagitis; Z87.820 Personal history of traumatic brain injury; Z79.82 Long term (current) use of aspirin; Z79.52 Long term (current) use of systemic steroids; Z88.1 Allergy status to other antibiotic agents; Z88.5 Allergy status to narcotic agent; Z88.8 Allergy status to other drugs, medicaments and biological substances; Z79.899 Other long term (current) drug therapy; Z79.01 Long term (current) use of anticoagulants; Z87.81 Personal history of (healed) traumatic fracture; Z90.89 Acquired absence of other organs; Z95.1 Presence of aortocoronary bypass graft; Z98.890 Other specified postprocedural states; Z20.828 Contact with and (suspected) exposure to other viral communicable diseases
CPT/HCPCS: 36415; 71046 ×2; 80053; 83880; 84484; 85025; 85379; 93005; 93010; 94640; 99285; U0002; 36600; 80048; 82803; 85027; 93306; 94762; A9270-GY; J0696; J1650; J1940; J2920; J2930; J7050; J7512; J7620-GY

== ENCOUNTER 2020-08-22 12:09 | Emergency (ER) | payer MEDICARE ==
[2020-08-22 12:41] VITALS: BP 110/74; PULSE 88
--- NOTE | 2020-08-22 15:17 | EDM.PDOC ---
ED HPI GENERAL MEDICAL PROBLEM - General Chief Complaint: General Stated Complaint: HEART SURGERY 2 WKS AGO, R ARM BRUISING Time Seen by Provider: 08/22/20 12:40 Source of Information: Reports: Patient History Limitations: Reports: No Limitations - History of Present Illness INITIAL COMMENTS - FREE TEXT/NARRATIVE: pt had a coronary angiogram done about 2 weeks ago through the rt arm. He now has some bruising and is tender down near the wrist. Onset: Gradual, Other ( this has become more tender in the last 2 -3 days. ) Duration: Hour(s): Location: Reports: Upper Extremity, Right - Related Data Allergies Allergy/AdvReac Type Severity Reaction Status Date / Time doxycycline Allergy Severe Airway Verified 07/10/20 10:37 Tightness cortisone [Cortisone] AdvReac Confusion Verified 07/10/20 02:55 morphine AdvReac Hallucinati Verified 07/10/20 02:55 ons oxycodone AdvReac Hives Verified 07/10/20 02:55 Home Meds: Home Meds Aspirin [Emi Chewable Aspirin] 81 mg PO DAILY 05/20/14 [History] Metoprolol Succinate [Toprol XL] 1.5 tab PO DAILY 09/09/16 [History] Omeprazole 40 mg PO DAILY 09/09/16 [History] Naproxen 500 mg PO BID 05/04/19 [History] Acetaminophen 500 mg PO TID 06/23/20 [History] DULoxetine [Cymbalta] 60 mg PO DAILY 06/23/20 [History] atorvaSTATin [Lipitor] 40 mg PO DAILY 06/23/20 [History] lisinopriL [Lisinopril] 5 mg PO DAILY 06/23/20 [History] Clopidogrel [Plavix] 75 mg PO DAILY 08/22/20 [History] Furosemide [Lasix] 20 mg PO DAILY 08/22/20 [History] Past Medical History HEENT History: Reports: Hard of Hearing, Impaired Vision Cardiovascular History: Reports: CAD, Heart Murmur, High Cholesterol, Hypertension Respiratory History: Reports: COPD, Sleep Apnea Other Respiratory History: cpap does not use Gastrointestinal History: Reports: Fecal Incontinence Musculoskeletal History: Reports: Back Pain, Chronic, Fracture Neurological History: Reports: Brain Injury Hematologic History: Reports: Anticoagulation Therapy - Infectious Disease History Infectious Disease History: Reports: Chicken Pox, Measles, Shingles - Past Surgical History Head Surgeries/Procedures: Reports: None HEENT Surgical History: Reports: Tonsillectomy Cardiovascular Surgical History: Reports: Coronary Artery Bypass Respiratory Surgical History: Reports: None GI Surgical History: Reports: Other (See Below) Other GI Surgeries/Procedures: spleenectomy Neurological Surgical History: Reports: Spinal Fusion Musculoskeletal Surgical History: Reports: None Social & Family History - Caffeine Use Caffeine Use: Reports: Coffee, Soda - Recreational Drug Use Recreational Drug Use: No - Living Situation & Occupation Living situation: Reports: Single Occupation: Disabled ED ROS GENERAL - Review of Systems Review Of Systems: See Below Constitutional: Reports: No Symptoms HEENT: Reports: No Symptoms Respiratory: Reports: No Symptoms Cardiovascular: Reports: No Symptoms Endocrine: Reports: No Symptoms GI/Abdominal: Reports: No Symptoms : Reports: No Symptoms Musculoskeletal: Reports: Other (pain at the wrist level in the area of bruising. ) ED EXAM, GENERAL - Physical Exam Exam: See Below Free Text/Narrative:: pt had a coronary angiogram about 2 weeks ago and now he has tenderness at the wrist level with slight swelling. Exam Limited By: No Limitations General Appearance: Alert, Anxious, Mild Distress Ears: Normal TMs Nose: Normal Inspection Throat/Mouth: Normal Inspection Head: Atraumatic Neck: Normal Inspection Respiratory/Chest: No Respiratory Distress Cardiovascular: Regular Rate, Rhythm Extremities: Other (pt has bruising and is tender at the wrist level. ) Course - Vital Signs Last Recorded V/S: Last Vital Signs Temp 36.2 C 08/22/20 12:42 Pulse 88 08/22/20 12:42 Resp 18 08/22/20 12:42 BP 110/74 08/22/20 12:42 Pulse Ox 95 08/22/20 12:42 - Orders/Labs/Meds Orders: Active Orders 24 hr Category Date Time Status VL Duplex Upr Ext Art Ltd Rt [US] Stat Exams 08/22/20 13:20 Ordered VL Duplex Upr Ext Veins Ltd Rt [US] Stat Exams 08/22/20 13:20 Ordered Labs: Laboratory Tests 08/22/20 08/22/20 Range/Units 13:19 13:19 WBC 10.6 (4.5-11.0) K/uL RBC 4.83 (4.30-5.90) M/uL Hgb 15.6 H (12.0-15.0) g/dL Hct 48.3 (40.0-54.0) % MCV 100 H (80-98) fL MCH 32 H (27-31) pg MCHC 32 (32-36) % Plt Count 321 (150-400) K/uL Neut % (Auto) 54 (36-66) % Lymph % (Auto) 33 (24-44) % [place] % (Auto) 11 H (2-6) % Eos % (Auto) 2 (2-4) % Baso % (Auto) 1 (0-1) % D-Dimer, Quantitative 109 (0.0-400.0) ng/mL - Re-Assessments/Exams Free Text/Narrative Re-Assessment/Exam: 08/22/20 15:27 pt had a us involving the artery and the vein and no clots were present. His Ddimer was neg. Departure - Departure Time of Disposition: 15:17 Disposition: Home, Self-Care 01 Condition: Fair Clinical Impression: Cellulitis of right arm - Discharge Information Referrals: Ruddy Stokes MD [Primary Care Provider] - Forms: ED Department Discharge Care Plan Goals: soak area bid, keflex 500mg tid rtc if getting worse. Sepsis Event Note (ED) - Evaluation Sepsis Screening Result: No Definite Risk - Focused Exam Vital Signs: Vital Signs Temp Pulse Resp BP Pulse Ox 08/22/20 12:42 36.2 C 88 18 110/74 95 08/22/20 12:39 36.2 C 88 18 110/74 95 - My Orders Last 24 Hours: My Active Orders 08/22/20 13:20 VL Duplex Upr Ext Art Ltd Rt [US] Stat VL Duplex Upr Ext Veins Ltd Rt [US] Stat - Assessment/Plan Last 24 Hours: My Active Orders 08/22/20 13:20 VL Duplex Upr Ext Art Ltd Rt [US] Stat VL Duplex Upr Ext Veins Ltd Rt [US] Stat
--- NOTE | 2020-08-23 09:38 | US ---
VL Duplex Upr Ext Veins Ltd Rt, INDICATION: pt had a recent cardiac cath and he has pain in th FINDINGS: The right internal jugular, innominate, subclavian, axillary, basilic, brachial, cephalic, radial, and ulnar veins are patent and compressible. There is no evidence of thrombus IMPRESSION: Right upper extremity negative for DVT. VL Duplex Upr Ext Art Ltd Rt CLINICAL HISTORY: Arm pain, previous cardiac catheterization FINDINGS: Real-time Doppler images were obtained to the right upper extremity from the subclavian artery down to the distal radial ulnar and palmar arteries. There are multiphasic waveforms in the right common carotid artery subclavian artery as well as the axillary artery. Multiphasic waveforms are seen in the brachial ulnar and radial arteries. There is monophasic waveforms in the palmar artery. IMPRESSION: No evidence of significant stenosis or thrombosis in the right upper extremity arterial system
== END 2020-08-22 15:25 | disposition home or self-care (01) ==
LOC: JP.ED 12:09
DX: L03.113 Cellulitis of right upper limb (principal); S60.211A Contusion of right wrist, initial encounter; I10 Essential (primary) hypertension; E78.00 Pure hypercholesterolemia, unspecified; I25.10 Atherosclerotic heart disease of native coronary artery without angina pectoris; J44.9 Chronic obstructive pulmonary disease, unspecified; Z88.5 Allergy status to narcotic agent; Z88.8 Allergy status to other drugs, medicaments and biological substances; Z95.1 Presence of aortocoronary bypass graft; Z79.82 Long term (current) use of aspirin; Z90.49 Acquired absence of other specified parts of digestive tract; Z79.02 Long term (current) use of antithrombotics/antiplatelets; Z79.899 Other long term (current) drug therapy; X58.XXXA Exposure to other specified factors, initial encounter
CPT/HCPCS: 36415; 85025; 85379; 93931-26; 93931-RT; 93971-26; 93971-RT; 99284-25

== ENCOUNTER 2021-03-15 06:26 | Day surgery (SDC) | payer MEDICARE ==
[2021-03-15] MEDS ORDERED: Propofol 200 MG/20 ML SDV ONE (07:19)
[2021-03-15] MEDS ORDERED: fentaNYL 100 MCG/2 ML SDV ONE (07:19)
[2021-03-15] MEDS ORDERED: Sodium Chloride 0.9% 1,000 ML IV SCH (07:30)
[2021-03-15] MEDS ORDERED: Sodium Chloride 0.9% 10 ML ONE (08:08)
[2021-03-15 09:48] VITALS: BP 138/90; PULSE 87
--- NOTE | 2021-03-15 14:23 | OR ---
DATE OF PROCEDURE: SURGEON: Chauncey Sutherland MD PROCEDURES: 1. Colonoscopy, endoscopic mucosal resection (52048), sigmoid colon. 2. Resection of polyp 8 mm, hot snare wire device; sigmoid #2, 8 mm. COMPLICATIONS: None. DENTAL MOLD MAKER: None. ANESTHESIA: MAC. PREOPERATIVE DIAGNOSIS: Screening colonoscopy. POSTOPERATIVE DIAGNOSIS: Screening colonoscopy. RISKS: Risks, benefits, alternatives, and limitations including, but not limited to infection, bleeding, perforation, false positives, false negatives were explained to the patient and he wished to proceed. PROCEDURE IN DETAIL: The patient was placed in left lateral decubitus position. Digital rectal exam was performed without abnormality. Scope was introduced and advanced atraumatically to the ileocecal valve. A photo was taken of this. Scope was brought back to the ascending, transverse, descending colon, and retroflexed. The sigmoid colon polyp #1 was identified. This was submucosally injected using normal saline at 3 points. Once this was elevated, a hot snare wire device was used to resect this. No abnormal bleeding was noted after removal. Sigmoid colon polyp #2 was also removed using hot snare wire device. No abnormal bleeding was noted after this. No abnormalities on retroflexion. The patient tolerated the procedure well. The prep was acceptable with greater than 90% of the luminal surface could be seen. Greater than 8 minutes was spent removing the scope. The patient tolerated the procedure well. Chauncey Sutherland MD /[id number]
== END 2021-03-15 09:30 | disposition home or self-care (01) ==
LOC: JP.SDS 06:26
PROVIDERS: ATTEND Surgery
DX: Z12.11 Encounter for screening for malignant neoplasm of colon (principal); K63.5 Polyp of colon; I10 Essential (primary) hypertension; G47.33 Obstructive sleep apnea (adult) (pediatric); J44.9 Chronic obstructive pulmonary disease, unspecified; F17.200 Nicotine dependence, unspecified, uncomplicated
CPT/HCPCS: 45381; 45385; J2704; J3010; J7030; 88305